=== PATIENT | male | born 1995 | race Caucasian/White ===

== ENCOUNTER 2022-11-11 12:52 | Outpatient (OUT) | payer OTHER, SELFPAY ==
--- NOTE | 2022-11-11 12:58 | US_ITS ---
[address] [address] Patient Name: MEREDITH NAPIER MRN: [id number] date: 1995 Sex: M Assigned Patient Location: [place] Current Patient Location: [place] Accession/Order Number: [id number] Exam Date: 11/11/2022 13:04 Report Date: 11/11/2022 16:24 At the request of: RADHIKA BARRAGAN Procedure: US scrotum doppler US scrotum doppler, 11/11/2022 1:04 PM EDT INDICATION:Left testicular pain x3 months COMPARISON: None. GRAYSCALE TECHNIQUE: Multi-planar real-time high-resolution ultrasound of the scrotum was performed. DOPPLER TECHNIQUE: Color and/or power Doppler combined with spectral Doppler analysis to evaluate blood flow to and from the testes was performed. FINDINGS: Right testicle: Normal size and echotexture 3.4 x 2.5 x 2.4 cm. Right epididymis: 0.5 x 0.4 x 0.4 simple epididymal cyst. Vascularity is within normal limits. Left testicle: Normal size and echotexture 3.3 x 2.3 x 1.8 cm. Left epididymis: Vascularity is within normal limits. Grade 1 left varicocele. Normal color Doppler with arterial/venous spectral tracing to both testicles. No hydrocele. IMPRESSION: 1. No suspicious testicular mass or testicular torsion. 2. Simple right epididymal cyst. 3. Grade 1 left varicocele. Electronically authenticated by: BALJIT RAMÍREZ Date: 11/11/2022 16:24
== END 2022-11-11 12:53 | disposition home or self-care (01) ==
LOC: US 12:53
PROVIDERS: PCP Nurse Practitioner Family; Visit Provider Family Medicine
DX: N50.812 Left testicular pain (principal)
CPT/HCPCS: 76870; 93976

== ENCOUNTER 2023-03-10 06:48 | Outpatient (OUT) | payer OTHER, SELFPAY ==
[2023-03-10 07:12] LABS: Basophils Absolute Auto 0.1 10^3/uL (0.0-0.1); Basophils Percent Auto 0.8 % (0.2-2.0); Eosinophils Absolute Auto 0.3 10^3/uL (0.0-0.7); Eosinophils Percent Auto 3.8 % (0.9-7.0); Hematocrit 43.5 % (42.0-54.0); Hemoglobin 14.5 g/dL (14.0-18.0); Immature Granulocytes Abs Auto 0.03 10^3/uL (0.00-0.03); Immature Granulocytes Pct Auto 0.3 % (0.0-0.5); Lymphocytes Absolute Auto 1.9 10^3/uL (1.2-3.8); Lymphocytes Percent Auto 20.6 % (20.5-60.0); Mean Corpuscular HGB Conc 33.3 g/dL (29.9-35.2); Mean Corpuscular Hemoglobin 30.2 pg (25.9-34.0); Mean Corpuscular Volume 90.6 fL (80.0-94.0); Mean Platelet Volume 13.2 fL (9.5-13.5); Monocytes Absolute Auto 0.8 10^3/uL (0.3-0.8); Monocytes Percent Auto 8.7 % (1.7-12.0); Neutrophils Absolute Auto 5.9 10^3/uL (1.4-6.5); Neutrophils Percent Auto 65.8 % (43.0-75.0); Platelet Count 135 10^3/uL (150-450); Red Cell Distribution Width 13.4 % (11.0-15.0)
[2023-03-10 07:48] LABS: Estimated Average Glucose 94 mg/dL; Glycohemoglobin A1C 4.9 % (4.5-6.2)
[2023-03-10 08:42] LABS: Alanine Aminotransferase 49 U/L (16-63); Albumin Level 3.7 g/dL (3.4-5.0); Alkaline Phosphatase 87 U/L (46-116); Anion Gap 12.4; Aspartate Amino Transferase 26 U/L (15-37); BUN Creatinine Ratio 13.7; Bilirubin Total 0.8 mg/dL (0.2-1.0); Calcium 9.3 mg/dL (8.5-10.1); Carbon Dioxide 26.5 mmol/L (21.0-32.0); Chloride 104 mmol/L (98-107); Chol HDL Ratio 2.6; Cholesterol 132 mg/dL (<=200); Estimated GFR (African America >60 (>=60); Estimated GFR (Non-African Ame >60 (>=60); Free T3 2.53 pg/mL (2.18-3.98); Globulin 3.8 g/dL; Glucose 79 mg/dL (74-106); HDL Cholesterol 50 mg/dL (40-60); LDL Cholesterol Calculated 67.6 mg/dL; Potassium 3.9 mmol/L (3.5-5.1); Sodium 139 mmol/L (136-145); Total Protein 7.5 g/dL (6.4-8.2); Triglycerides 72 mg/dL (<=150); VLDL CHOLESTEROL 14.4 mg/dL
[2023-03-11 12:07] LABS: Insulin 10.5 uIU/mL (2.6-24.9)
== END 2023-03-10 06:49 | disposition home or self-care (01) ==
LOC: LAB 06:49
PROVIDERS: PCP Family Medicine; Visit Provider Family Medicine
DX: Z00.00 Encounter for general adult medical examination without abnormal findings (principal)
CPT/HCPCS: 36415; 80053; 80061; 83036; 83525; 84436; 84443; 84481; 85025

== ENCOUNTER 2023-10-14 08:19 | Emergency (ER) | payer OTHER, SELFPAY ==
--- OUTSIDE RECORDS SUMMARY | 2023-10-14 08:23 | XMS_ITS | CCD ---
Author Organization [facility] Care Team Providers Care [employer] Software Developer Name Role Phone Radhika Barragan Primary Care Physician ODIN HOOKER Primary Care Unavailable KATHERINE LOMBARDI Consulting Unavailable KATHERINE LOMBARDI Admitting Unavailable KATHERINE LOMBARDI Attending Unavailable PHILIP BUSBY Consulting Unavailable DR RADHIKA BARRAGAN Admitting Unavailable DR RADHIKA BARRAGAN Attending Unavailable ODIN HOOKER Primary Care Unavailable DR RADHIKA BARRAGAN Consulting Unavailable MD Radhika Barragan Primary Care Provider [phone] DO Bryce Zhang Attending Provider [phone] Bryce Zhang Unavailable MD Radhika Barragan Primary Care Provider DO Bryce Zhang Attending Provider [phone] Radhika Barragan Primary Care Unavailable Bryce Zhang Admitting Unavailable Bryce Zhang Attending Unavailable Radhika Barragan Primary Care Unavailable Bryce Zhang Admitting Unavailable Bryce Zhang Attending Unavailable Bryce Zhang Admitting Unavailable Bryce Zhang Attending Unavailable Radhika Barragan Primary Care Unavailable Medications Current Medications Medication Drug Class(es) Dates Sig (Normalized) Sig (Original) Calcium (3 sources) Phosphate Binder, Calcium Calcium Active Fish Oils (3 sources) Fish Oil Active Ibuprofen (6 sources) Nonsteroidal Anti-inflammatory Drug Ibuprofen Active Multivitamin preparation (3 sources) Multivitamin Active vardenafil 20 mg oral tablet (1 source) Phosphodiesterase 5 Inhibitor Start: 08-03-2021 take 1 tablet by mouth once daily as needed vardenafil 20 mg Tab 20 mg = 1 tab(s), Oral, Daily, PRN for erectile dysfunction, Refills(s) 0 Start Date: 08/03/21 Status: Ordered Problems Active Problems Problem Classification Problem Date Documented Da te Episodic/Chronic E Codes: Natural/environment (1 source) Other and unspecified overexertion or strenuous movements or postures, initial encounter; Translations: [OTH AND UNS OVREXRT/STRN MVMT/POS INT] Onset: 05-02-2022 Episodic Fracture of lower limb (7 sources) Nondisplaced fracture of lateral malleolus of left fibula, initial encounter for closed fracture; Translations: [Other fracture of upper and lower end of left fibula, initial encounter for closed fracture] Onset: 05-02-2022 Episodic Other male genital disorders (5 sources) Male erectile dysfunction, unspecified; Translations: [Erectile dysfunction] Onset: 07-05-2021 Chronic Other non-traumatic joint disorders (3 sources) Pain in left ankle and joints of left foot; Translations: [PAIN IN LEFT ANKLE] Onset: 04-29-2022 Episodic Unclassified (1 source) Other fracture of upper and lower end of left fibula, initial encounter for closed fracture; Translations: [Other fracture of upper and lower end of left fibula, initial encounter for closed fracture] Onset: 05-17-2022 Past or Other Problems Problem Classification Problem Date Documented Da te Episodic/Chronic Deficiency and other anemia (1 source) Anemia, unspecified; Translations: [ANEMIA UNSPECIFIED] Onset: 07-07-2021 Episodic Diabetes mellitus without complication (1 source) Other abnormal glucose; Translations: [OTHER ABNORMAL GLUCOSE] Onset: 07-07-2021 Episodic Results Test Name Value Interpretation Reference Range Facility XR ankle LT min 3V*on 2022 XR ankle LT min 3V* [facility] Editorially Other XR ankle LT min 3V* [facility] Editorially Other XR ankle LT min 3V* [address] [place] [address] Editorially Other XR ankle LT min 3V* [place] [address] [facility] Editorially Other XR ankle LT min 3V* XRay Report [facility] Editorially Other XR ankle LT min 3V* Signed [facility] Editorially Other XR ankle LT min 3V* Patient: Pilo Johnson MR#: [id number] [facility] Other XR ankle LT min 3V* 2 [facility] Other XR ankle LT min 3V* : 1995 Acct:[id number] [facility] Other XR ankle LT min 3V* Age/Sex: 27 / M ADM Date: 08/02/22 [facility] Other XR ankle LT min 3V* Loc: [facility] Room: Type: [facility] Other XR ankle LT min 3V* Attending Dr: Bryce Zhang DO [facility] Other XR ankle LT min 3V* Copies to: Bryce Zhang DO [facility] Other XR ankle LT min 3V* Ordering Provider: Bryce Zhang DO [facility] Other XR ankle LT min 3V* Date of Service: 08/02/22 [facility] Other XR ankle LT min 3V* XR/XR ankle LT min 3V*: Closed fracture of distal end of left fibula, [facility] Other XR ankle LT min 3V* unspecified fr N [facility] [employer] Other XR ankle LT min 3V* LEFT ANKLE - 3 views [facility] Other XR ankle LT min 3V* CLINICAL HISTORY: Follow-up left distal fibular fracture [facility] Other XR ankle LT min 3V* COMPARISON: Left ankle 06/21/2022 [facility] Other XR ankle LT min 3V* FINDINGS: [facility] Other XR ankle LT min 3V* Soft tissue swelling is still present. Fracture is grossly unchanged alignment and healing. Ankle [facility] Other XR ankle LT min 3V* mortise appears intact. [facility] Other XR ankle LT min 3V* XR/XR ankle LT min 3V* [facility] Other XR ankle LT min 3V* IMPRESSION: [email or web address] Other XR ankle LT min 3V* DISTAL FIBULAR FRACTURE, GROSSLY UNCHANGED. [facility] Other XR ankle LT min 3V* Impression dictated by: Kalia Luke Jr., D.O.08/02/2022 10:50 AM [facility] Other XR ankle LT min 3V* Dictation Location: [place] [address] [facility] Other XR ankle LT min 3V* Transcribed By: PWS 08/02/22 1050 [facility] Other XR ankle LT min 3V* Dictated By: Kalia Luke Jr, DO 08/02/22 1049 [facility] Other XR ankle LT min 3V* Signed By: [facility] Other XR ankle LT min 3V* 08/02/22 1050 No [email or web address] Other XR ankle LT min 3V* [facility] Main [place] [address] [place] [address] XRay Report Signed Patient: Pilo Johnson MR#: [id number] 2 : 1995 Acct:[id number] Age/Sex: 27 / M ADM Date: 08/02/22 Loc: [facility] Room: Type: [facility] CLI Attending Dr: Bryce Zhang DO Copies to: Bryce Zhang DO Ordering Provider: Bryce Zhang DO Date of Service: 08/02/22 XR/XR ankle LT min 3V*: Closed fracture of distal end of left fibula, unspecified fr LEFT ANKLE - 3 views CLINICAL HISTORY: Follow-up left distal fibular fracture COMPARISON: Left ankle 06/21/2022 FINDINGS: Soft tissue swelling is still present. Fracture is grossly unchanged alignment and healing. Ankle mortise appears intact. XR/XR ankle LT min 3V* IMPRESSION: DISTAL FIBULAR FRACTURE, GROSSLY UNCHANGED. Impression dictated by: Kalia Luke Jr., D.O.08/02/2022 10:50 AM [employer]ictation Location: [facility]--12 Transcribed By: [facility] 08/02/22 1050 Dictated By: Kalia Luke Jr, DO 08/02/22 1049 Signed By: 08/02/22 1050 Normal [facility] XR ankle LT min 3V*on 2022 XR ankle LT min 3V* [facility] Editorially Other XR ankle LT min 3V* [facility] Editorially Other XR ankle LT min 3V* [address] [place] [address] [employer] Other XR ankle LT min 3V* [place] [address] [facility] Other XR ankle LT min 3V* XRay Report Nort [employer] Other XR ankle LT min 3V* Signed [facility] Other XR ankle LT min 3V* Patient: Pilo Johnson MR#: [id number] [facility] Other XR ankle LT min 3V* 2 [facility] Other XR ankle LT min 3V* : 1995 Acct:[id number] [facility] Other XR ankle LT min 3V* Age/Sex: 27 / M ADM Date: 06/21/22 [facility] Other XR ankle LT min 3V* Loc: [facility] Room: Type: [facility] Other XR ankle LT min 3V* Attending Dr: Bryce Zhang DO [facility] Other XR ankle LT min 3V* Copies to: Bryce Zhang DO [facility] Other XR ankle LT min 3V* Ordering Provider: Bryce Zhang DO [facility] Other XR ankle LT min 3V* Date of Service: 06/21/22 [facility] Other XR ankle LT min 3V* XR/XR ankle LT min 3V*: Closed fracture of distal end of left fibula, [facility] Other XR ankle LT min 3V* unspecified fr N [facility] Other XR ankle LT min 3V* LEFT ANKLE - 3 views [facility] Other XR ankle LT min 3V* CLINICAL HISTORY: Follow-up left distal fibular fracture. [facility] Other XR ankle LT min 3V* COMPARISON: Left ankle 05/17/2022 [facility] Other XR ankle LT min 3V* FINDINGS: [facility] Other XR ankle LT min 3V* Soft tissue swelling is noted. Interval callus formation involving the distal fibular fracture [facility] Other XR ankle LT min 3V* suggestive of healing response. No change in alignment. Ankle mortise appears intact. [facility] Other XR ankle LT min 3V* XR/XR ankle LT min 3V* [facility] Other XR ankle LT min 3V* IMPRESSION: [email or web address] Other XR ankle LT min 3V* HEALING DISTAL FIBULAR FRACTURE. [facility] Other XR ankle LT min 3V* Impression dictated by: Yenni Pena Jr.OXiomara06/21/2022 10:09 AM [facility] Other XR ankle LT min 3V* Dictation Location: [place] [address] [facility] Other XR ankle LT min 3V* Transcribed By: BEN 06/21/22 1009 [facility] Editorially Other XR ankle LT min 3V* Dictated By: Kalia Luke Jr, DO 06/21/22 1009 [facility] Editorially Other XR ankle LT min 3V* Signed By: Valatie [employer] Other XR ankle LT min 3V* 06/21/22 1009 [facility] Other [facility] min 3V* [facility] Main [address] [address] XRay Report Signed Patient: Pilo Johnson MR#: [id number] 2 : 1995 Acct:[id number] Age/Sex: 27 / M ADM Date: 06/21/22 Loc: [facility] Room: Type: [facility] Attending Dr: Bryce Zhang DO Copies to: Bryce Zhang DO Ordering Provider: Bryce Zhang DO Date of Service: 06/21/22 XR/XR ankle LT min 3V*: Closed fracture of distal end of left fibula, unspecified fr LEFT ANKLE - 3 views CLINICAL HISTORY: Follow-up left distal fibular fracture. COMPARISON: Left ankle 05/17/2022 FINDINGS: Soft tissue swelling is noted. Interval callus formation involving the distal fibular fracture suggestive of healing response. No change in alignment. Ankle mortise appears intact. XR/XR ankle LT min 3V* IMPRESSION: HEALING DISTAL FIBULAR FRACTURE. Impression dictated by: Kalia Luke Jr., D.OXiomara06/21/2022 10:09 AM Dictation Location: [place] [address] Transcribed By: BEN 06/21/22 1009 Dictated By: Kalia Luke Jr, DO 06/21/22 1009 Signed By: 06/21/22 1009 Normal [facility] XR ankle LT min 3V*on 2022 XR ankle LT min 3V* [facility] Main [address] [address] XRay Report Signed Patient: Pilo Johnson MR#: [id number] 2 : 1995 Acct:[id number] Age/Sex: 27 / M ADM Date: 05/17/22 Loc: [facility] Room: Type: [facility] Attending Dr: Bryce Zhang DO Copies to: Bryce Zhang DO Ordering Provider: Bryce Zhang DO Date of Service: 05/17/22 XR/XR ankle LT min 3V*: Closed fracture of distal end of left fibula, unspecified fr LEFT ANKLE - 3 views CLINICAL HISTORY: Follow-up post fracture distal end left fibula. COMPARISON: Left ankle 04/29/2022 FINDINGS: Soft tissue swelling is noted. Fracture involving the distal fibula grossly unchanged in alignment with fracture line less conspicuous suggestive of healing response. Ankle mortise appears intact. XR/XR ankle LT min 3V* IMPRESSION: HEALING DISTAL FIBULAR FRACTURE. Impression dictated by: Kalia Luke Jr., D.O.05/17/2022 2:58 PM Dictation Location: [place] [address] Transcribed By: [facility] 05/17/22 1458 Dictated By: Kalia Luke Jr, DO 05/17/22 1457 Signed By: 05/17/22 1458 Normal [facility] XR ankle LT min 3V* [facility] Editorially Other XR ankle LT min 3V* [facility] Main [facility] Editorially Other XR ankle LT min 3V* [address] [place] [address] Editorially Other XR ankle LT min 3V* [place] [address] [facility] Editorially Other XR ankle LT min 3V* XRay Report Nort [employer] Other XR ankle LT min 3V* Signed [facility] Other XR ankle LT min 3V* Patient: Pilo Johnson MR#: [id number] [facility] Editorially Other XR ankle LT min 3V* 2 [facility] Other XR ankle LT min 3V* : 1995 Acct:[id number] [facility] Other XR ankle LT min 3V* Age/Sex: 27 / M ADM Date: 05/17/22 [facility] Other XR ankle LT min 3V* Loc: [facility] Room: Type: REG I [facility] Other XR ankle LT min 3V* Attending Dr: Bryce Zhang DO [facility] Other XR ankle LT min 3V* Copies to: Bryce Zhang DO [facility] Other XR ankle LT min 3V* Ordering Provider: Bryce Zhang DO [facility] Other XR ankle LT min 3V* Date of Service: 05/17/22 [facility] Other XR ankle LT min 3V* XR/XR ankle LT min 3V*: Closed fracture of distal end of left fibula, [facility] Other XR ankle LT min 3V* unspecified fr N [facility] Other XR ankle LT min 3V* LEFT ANKLE - 3 views [facility] Other XR ankle LT min 3V* CLINICAL HISTORY: Follow-up post fracture distal end left fibula. [facility] Other XR ankle LT min 3V* COMPARISON: Left ankle 04/29/2022 [facility] Other XR ankle LT min 3V* FINDINGS: [facility] Other XR ankle LT min 3V* Soft tissue swelling is noted. Fracture involving the distal fibula grossly unchanged in alignment [facility] Other XR ankle LT min 3V* with fracture line less conspicuous suggestive of healing response. Ankle mortise appears intact. [facility] Other XR ankle LT min 3V* XR/XR ankle LT min 3V* [facility] Other XR ankle LT min 3V* IMPRESSION: [email or web address] Other XR ankle LT min 3V* HEALING DISTAL FIBULAR FRACTURE. [facility] Other XR ankle LT min 3V* Impression dictated by: Kalia Luke Jr., DXiomaraOXiomara05/17/2022 2:58 PM [facility] Other XR ankle LT min 3V* Dictation Location: [place] [address] [facility] Other XR ankle LT min 3V* Transcribed By: PWS 05/17/22 [facility] Other XR ankle LT min 3V* Dictated By: Kalia Luke Jr DO 05/17/22 145 [facility] Other XR ankle LT min 3V* Signed By: [facility] Other XR ankle LT min 3V* 05/17/22 1458 No rt [employer] Other XR TIB_FIB LT 2Von 2 XR TIB_FIB LT 2V EXAM: XR TIB_FIB LT 2V, XR ANKLE LT MIN 3 V INDICATION: Pain. Twisted left ankle yesterday. COMPARISON: None. TECHNIQUE: Left tibia and fibula, 2 views. Left ankle, 3 views. FINDINGS: Nondisplaced oblique fracture of the medial malleolus. Intact ankle mortise. No other fracture identified. Grossly intact left knee joint. Soft tissue swelling about the ankle. Posterior calcaneal enthesophyte noted. IMPRESSION: Nondisplaced lateral malleolar fracture. Electronically authenticated by: PHILIP BUSBY Date: 2022-04-29 11:37 Normal [facility] Ambulatory Visit Summaryon 0 08-03-2021 Ambulatory Visit Summary QUYEN PILO :1995 Visit Date:08/03/2021 Ambulatory Visit Instructions Your Diagnosis Erectile dysfunction Tests Performed Urnls Dip Stick Auto w/o Microscopy POC 72375 Your Care Team Attending Physician - MORENO MARTINEZ PA-C Primary Care Physician - Radhika Barragan MD This Is Your Medications List vardenafil (vardenafil 20 mg Tab) Procedures Performed Gastric bypass (02/11/2019), Heart (2008). Discharge Vitals Heart Rate (Peripheral) 69 Respiratory Rate 16 Blood Pressure 132/75 Height 192 cm Height 192.0 cm Weight 171.3 kg Weight 171.3 kg BMI 46.47 Medications What How Much When Instructions Unchanged vardenafil (vardenafil 20 mg Tab) 1 Tablets By Mouth Every day as needed for for erectile dysfunction Test Results Urnls Dip Stick Auto w/o Microscopy POC 90957 (08/03/2021) Bilirubin Urine Dipstick - Negative Blood Urine Dipstick - Negative Glucose Urine Dipstick - Negative Ketones Urine Dipstick - Negative Leukocytes Urine Dipstick - Negative Nitrite Urine Dipstick - Negative Protein Urine Dipstick - Negative Specific [place] Urine Dipstick - 1.020 Urine Appearance Urine Dipstick - Clear Urine Color Urine Dipstick - Yellow Urobilinogen Urine Dipstick - 4 EU/dl pH Urine Dipstick - 6.5 Allergies No active allergies Normal [facility] Lab Reportson 08-03-2021 Lab Reports [id number] [id number]:127 Normal [facility] Patient Educationon 08-04-19 22 Patient Education Urology Erectile Dysfunction Erectile dysfunction (ED) is the inability to get or keep an erection in order to have sexual intercourse. Erectile dysfunction may include: ? Inability to get an erection. ? Lack of enough hardness of the erection to allow penetration. ? Loss of the erection before sex is finished. What are the causes? This condition may be caused by: ? Certain medicines, such as: ? Pain relievers. ? Antihistamines. ? Antidepressants. ? Blood pressure medicines. ? Water pills (diuretics). ? Ulcer medicines. ? Muscle relaxants. ? Drugs. ? Excessive drinking. ? Psychological causes, such as: ? Anxiety. ? Depression. ? Sadness. ? Exhaustion. ? Performance fear. ? Stress. ? Physical causes, such as: ? Artery problems. This may include diabetes, smoking, liver disease, or atherosclerosis. ? High blood pressure. ? Hormonal problems, such as low testosterone. ? Obesity. ? Nerve problems. This may include back or pelvic injuries, diabetes mellitus, multiple sclerosis, or Parkinson disease. What are the signs or symptoms? Symptoms of this condition include: ? Inability to get an erection. ? Lack of enough hardness of the erection to allow penetration. ? Loss of the erection before sex is finished. ? Normal erections at some times, but with frequent unsatisfactory episodes. ? Low sexual satisfaction in either partner due to erection problems. ? A curved penis occurring with erection. The curve may cause pain or the penis may be too curved to allow for intercourse. ? Never having nighttime erections. How is this diagnosed? This condition is often diagnosed by: ? Performing a physical exam to find other diseases or specific problems with the penis. ? Asking you detailed questions about the problem. ? Performing blood tests to check for diabetes mellitus or to measure hormone levels. ? Performing other tests to check for underlying health conditions. ? Performing an ultrasound exam to check for scarring. ? Performing a test to check blood flow to the penis. ? Doing a sleep study at home to measure nighttime erections. How is this treated? This condition may be treated by: ? Medicine taken by mouth to help you achieve an erection (oral medicine). ? Hormone replacement therapy to replace low testosterone levels. ? Medicine that is injected into the penis. Your health care provider may instruct you how to give yourself these injections at home. ? Vacuum pump. This is a pump with a ring on it. The pump and ring are placed on the penis and used to create pressure that helps the penis become erect. ? Penile implant surgery. In this procedure, you may receive: ? An inflatable implant. This consists of cylinders, a pump, and a reservoir. The cylinders can be inflated with a fluid that helps to create an erection, and they can be deflated after intercourse. ? A semi-rigid implant. This consists of two silicone rubber rods. The rods provide some rigidity. They are also flexible, so the penis can both curve downward in its normal position and become straight for sexual intercourse. ? Blood vessel surgery, to improve blood flow to the penis. During this procedure, a blood vessel from a different part of the body is placed into the penis to allow blood to flow around (bypass) damaged or blocked blood vessels. ? Lifestyle changes, such as exercising more, losing weight, and quitting smoking. Follow these instructions at home: Medicines ? Take [id number]-fuxpfun and prescription medicines only as told by your health care provider. Do not increase the dosage without first discussing it with your health care provider. ? If you are using self-injections, perform injections as directed by your health care provider. Make sure to avoid any veins that are on the surface of the penis. After giving an injection, apply pressure to the injection site for 5 minutes. General instructions ? Exercise regularly, as directed by your health care provider. Work with your health care provider to lose weight, if needed. ? Do not use any products that contain nicotine or tobacco, such as cigarettes and e-cigarettes. If you need help quitting, ask your health care provider. ? Before using a vacuum pump, read the instructions that come with the pump and discuss any questions with your health care provider. ? Keep all follow-up visits as told by your health care provider. This is important. Contact a health care provider if: ? You feel nauseous. ? You vomit. Get help right away if: ? You are taking oral or injectable medicines and you have an erection that lasts longer than 4 hours. If your health care provider is unavailable, go to the nearest emergency room for evaluation. An erection that lasts much longer than 4 hours can result in permanent damage to your penis. ? You have severe pain in your groin or abdomen. ? You develop redness or severe swelling of your (more content not included)... Normal [facility] TESTOSTERONE, FREE,DIRECT, T [place] 07-07-2021 Free Testosterone(Direct) 10.5 pg/mL Normal 9.3-26.5 [facility] Comment on above: Result Comment: Perf ormed at: BN Performed By: #### T ESTFRD #### [facility] [address] [place] [address] [address] Leonor Galicia Testosterone [Mass/Vol] 630 ng/dL Normal 264-916 [facility] Comment on above: Result Comment: Adul t male reference interval is based on a population of healthy nonobese males (BMI <30) between 19 and 39 years old. Jamel et.al. JCEM 2017,102;8063-6589. PMID: [id number]. Performed at: CB Performed By: #### T ESTFRD #### [facility] [address] [place] [address] Dr. Leonor Galicia INSULINon 07-06-2021 Insulin 16.1 uIU/mL Normal 2.6-24.9 [facility] Comment on above: Performed By: #### I NSULIN #### [facility] [address] [place] [address] Dr. Leonor Galicia CBC AUTO DIFFon 07-05-2021 BASO # 0.1 103/ul Normal 0.0-0.1 [facility] Comment on above: Performed By: #### C BC #### [facility] [address] [place] [address] Dr. Leonor Galicia Basophils/100 WBC (Bld) 0.7 % Normal 0.2-2.0 [facility] Comment on above: Performed By: #### C BC #### [facility] [address] [place] [address] Dr. Leonor Galicia EO # 0.4 103/ul Normal 0.0-0.7 [facility] Comment on above: Performed By: #### C BC #### [facility] [address] [place] [address] Dr. Leonor Galicia Eosinophils/100 WBC (Bld) 6.3 % Normal 0.9-7.0 [facility] Comment on above: Performed By: #### C BC #### [facility] [address] [place] [address] Dr. Leonor Galicia Erythrocyte distribution width (RBC) [Ratio] 13.8 % Normal 11.0-15.0 [facility] Comment on above: Performed By: #### C BC #### [facility] [address] [place] [address] Dr. Leonor Galicia Hematocrit (Bld) [Volume fraction] 44.9 % Normal 42.0-54.0 [facility] Comment on above: Performed By: #### C BC #### [facility] [address] [place] [address] Dr. Leonor Galicia Hemoglobin (Bld) [Mass/Vol] 15.0 g/dL Normal 14.0-18.0 [facility] Comment on above: Performed By: #### C BC #### [facility] [address] [place] [address] Dr. Leonor Galicia IG # 0.02 10e3/ul Normal 0.00-0.03 [facility] Comment on above: Performed By: #### C BC #### [facility] [address] [place] [address] Dr. Leonor Galicia IG % 0.3 % Normal 0.0-0.5 [facility] Comment on above: Performed By: #### C BC #### [facility] [address] [place] [address] Dr. Leonor Galicia LYMPH # 2.2 103/ul Normal 1.2-3.8 [facility] Comment on above: Performed By: #### C BC #### [facility] [address] [place] [address] Dr. Leonor Galicia Lymphocytes/100 WBC (Bld) 31.9 % Normal 20.5-60.0 [facility] Comment on above: Performed By: #### C BC #### [facility] [address] [place] [address] Dr. Leonor Galicia MANUAL DIFF REQ NO Normal [facility] Comment on above: Performed By: #### C BC #### [facility] [address] [place] [address] Dr. Leonor Galicia MCH (RBC) [Entitic mass] 30.8 pg Normal 25.9-34.0 [facility] Comment on above: Performed By: #### C BC #### [facility] [address] [place] [address] Dr. Leonor Galicia MCHC (RBC) [Mass/Vol] 33.4 g/dL Normal 29.9-35.2 [facility] Comment on above: Performed By: #### C BC #### [facility] [address] [place] [address] Dr. Leonor Galicia MCV (RBC) [Entitic vol] 92.2 fL Normal 80.0-94.0 [facility] Comment on above: Performed By: #### C BC #### [facility] [address] [address] [address] Leonor Galicia MONO # 0.7 103/ul Normal 0.3-0.8 [facility] Comment on above: Performed By: #### C BC #### [facility] [address] [address] [address] Leonor Galicia Monocytes/100 WBC (Bld) 9.5 % Normal 1.7-12.0 [facility] Comment on above: Performed By: #### C BC #### [facility] [address] [place] [address] Dr. Leonor Galicia NEUT # 3.6 103/ul Normal 1.4-6.5 [facility] Comment on above: Performed By: #### C BC #### [facility] [address] [place] [address] Dr. Leonor Galicia Neutrophils/100 WBC (Bld) 51.3 % Normal 43.0-75.0 [facility] Comment on above: Performed By: #### C BC #### [facility] [address] [place] [address] Dr. Leonor Galicia Platelet mean volume (Bld) [Entitic vol] 12.9 fL Normal 9.5-13.5 [facility] Comment on above: Performed By: #### C BC #### [facility] [address] [place] [address] Dr. Leonor Galicia PLT 148 103/ul Critically low 150-450 [facility] Comment on above: Performed By: #### C BC #### [facility] [address] [place] [address] Dr. Leonor Galicia RBC 4.87 106/ul Normal 4.70-6.10 [facility] Comment on above: Performed By: #### C BC #### [facility] [address] [place] [address] Dr. Leonor Galicia WBC 6.9 103/ul Normal 4.0-11.0 [facility] Comment on above: Performed By: #### C BC #### [facility] [address] [place] [address] Dr. Leonor Galicia FREE THYROXINE INDEX T7on FTI 3.04 Normal [facility] Comment on above: Performed By: #### L IPID, CMP, TSH, T7 #### [facility] [address] [place] [address] Dr. Leonor Galicia T3U 38.0 % Normal 23.5-40.5 [facility] Comment on above: Performed By: #### L IPID, CMP, TSH, T7 #### [facility] [address] [place] [address] Dr. Leonor Galicia T4 [Mass/Vol] 8.00 ug/dL Normal 5.53-11.00 [facility] Comment on above: Performed By: #### L IPID, CMP, TSH, T7 #### [facility] [address] [place] [address] Dr. Leonor Galicia GLYCOHEMOGLOBIN A1Con 2021 ADA RECOMMENDATION ADA THERAPEUTIC TARGET 6.0 - 7.0 ACTION SUGGESTED > 7.0 Normal [facility] Comment on above: Performed By: #### A 1C #### [facility] [address] [place] [address] Dr. Leonor Galicia Glucose [Mass/Vol] 97 mg/dL Normal [facility] Comment on above: Performed By: #### A 1C #### [facility] [address] [place] [address] Dr. Leonor Galicia HbA1c (Bld) [Mass fraction] 5.0 % Normal <=6.0 [facility] Comment on above: Performed By: #### A 1C #### [facility] [address] [place] [address] Dr. Leonor Galicia IRONon 07-05-2021 Iron [Mass/Vol] 96.0 ug/dL Normal 49.0-181.0 [facility] Comment on above: Performed By: #### L IPID, CMP, TSH, T7 #### [facility] [address] [place] [address] Dr. Leonor Galicia LIPID PROFILEon 07-05-2021 CHOL-HDL RATIO NORM SEE BELOW Normal [facility] Comment on above: Result Comment: 3.3 - 4.4 LOW RISK 4.4 - 7.1 AVERAGE RISK 7.1 - 11.0 MODERATE RISK >11.0 HIGH RISK Performed By: #### L IPID, CMP, TSH, T7 #### [facility] [address] [address] [address] Leonor Galicia Cholesterol [Mass/Vol] 134 mg/dL Normal <=200 [facility] Comment on above: Performed By: #### L IPID, CMP, TSH, T7 #### [facility] [address] [address] [address] Leonor Galicia Cholesterol in HDL [Mass/Vol] 50 mg/dL Normal [facility] Comment on above: Performed By: #### L IPID, CMP, TSH, T7 #### [facility] [address] [address] [address] Leonor Galicia Cholesterol in LDL [Mass/Vol] 67.6 mg/dL Normal [facility] Comment on above: Performed By: #### L IPID, CMP, TSH, T7 #### [facility] [address] [address] [address] Leonor Galicia Cholesterol.total/Ch olesterol in HDL [Mass ratio] 2.7 {ratio} Normal [facility] Comment on above: Performed By: #### L IPID, CMP, TSH, T7 #### [facility] [address] [address] [address] Leonor Galicia HDL NORMAL > or = 60 mg/dl - LOW CARDIOVASCULAR RISK <40 mg/dl - HIGH CARDIOVASCULAR RISK Normal [facility] Comment on above: Performed By: #### L IPID, CMP, TSH, T7 #### [facility] [address] [address] [address] Leonor Galicia LDL CALC NORMAL SEE BELOW Normal [facility] Comment on above: Result Comment: <100 mg/dl OPTIMAL 100 - 129 mg/dl NEAR OR ABOVE OPTIMAL 130 - 159 mg/dl BORDERLINE HIGH 160 - 189 mg/dl HIGH >190 mg/dl VERY HIGH Performed By: #### L IPID, CMP, TSH, T7 #### [facility] [address] [address] [address] Leonor Galicia Triglyceride [Mass/Vol] 82 mg/dL Normal <=150 [facility] Comment on above: Performed By: #### L IPID, CMP, TSH, T7 #### [facility] [address] [address] [address] Leonor Galicia VLDL CALC 16.4 mg/dL Normal [facility] Comment on above: Performed By: #### L IPID, CMP, TSH, T7 #### [facility] [address] [address] [address] Leonor Galicia PROF 14(COMP METB)on 022 Albumin [Mass/Vol] 3.5 g/dL Normal 3.5-5.0 [facility] Comment on above: Performed By: #### L IPID, CMP, TSH, T7 #### [facility] [address] [address] [address] Leonor Galicia Albumin/Globulin [Mass ratio] 0.9 {ratio} Normal [facility] Comment on above: Performed By: #### L IPID, CMP, TSH, T7 #### [facility] [address] [address] [address] Leonor Galicia ALP [Catalytic activity/Vol] 89 U/L Normal 38-126 [facility] Comment on above: Performed By: #### L IPID, CMP, TSH, T7 #### [facility] [address] [address] [address] Leonor Galicia ALT [Catalytic activity/Vol] 28 U/L Normal 21-72 [facility] Comment on above: Performed By: #### L IPID, CMP, TSH, T7 #### [facility] [address] [address] [address] Leonor Galicia Anion gap [Moles/Vol] 7.3 mmol/L Normal [facility] Comment on above: Performed By: #### L IPID, CMP, TSH, T7 #### [facility] [address] [place] [address] Dr. Leonor Galicia AST [Catalytic activity/Vol] 18 U/L Normal 17-59 [facility] Comment on above: Performed By: #### L IPID, CMP, TSH, T7 #### [facility] [address] [address] [address] Leonor Galicia Bilirubin [Mass/Vol] 1.1 mg/dL Normal 0.2-1.3 [facility] Comment on above: Performed By: #### L IPID, CMP, TSH, T7 #### [facility] [address] [place] [address] Dr. Leonor Galicia Calcium [Mass/Vol] 9.2 mg/dL Normal 8.4-10.2 [facility] Comment on above: Performed By: #### L IPID, CMP, TSH, T7 #### [facility] [address] [place] [address] Dr. Leonor Galicia Chloride [Moles/Vol] 107 mmol/L Normal 98-107 [facility] Comment on above: Performed By: #### L IPID, CMP, TSH, T7 #### [facility] [address] [place] [address] Dr. Leonor Galicia CO2 [Moles/Vol] 28.9 mmol/L Normal 22.0-30.0 [facility] Comment on above: Performed By: #### L IPID, CMP, TSH, T7 #### [facility] [address] [place] [address] Dr. Leonor Galicia Creatinine [Mass/Vol] 0.74 mg/dL Normal 0.66-1.25 [facility] Comment on above: Performed By: #### L IPID, CMP, TSH, T7 #### [facility] [address] [address] [address] Leonor Galicia EGFR-AF SURINAMESE >156 Normal >=60 [facility] Comment on above: Performed By: #### L IPID, CMP, TSH, T7 #### [facility] [address] [place] [address] Dr. Leonor Galicia EGFR-NON AF SURINAMESE >129 Normal >=60 [facility] Comment on above: Performed By: #### L IPID, CMP, TSH, T7 #### [facility] [address] [address] [address] Leonor Galicia Globulin (S) [Mass/Vol] 3.7 g/dL Normal [facility] Comment on above: Performed By: #### L IPID, CMP, TSH, T7 #### [facility] [address] [address] [address] Leonor Galicia Glucose [Mass/Vol] 83 mg/dL Normal 74-106 [facility] Comment on above: Performed By: #### L IPID, CMP, TSH, T7 #### [facility] [address] [address] [address] Leonor Galicia Potassium [Moles/Vol] 4.2 mmol/L Normal 3.4-5.0 [facility] Comment on above: Performed By: #### L IPID, CMP, TSH, T7 #### [facility] [address] [address] [address] Leonor Galicia Protein [Mass/Vol] 7.2 g/dL Normal 6.1-8.2 [facility] Comment on above: Performed By: #### L IPID, CMP, TSH, T7 #### [facility] [address] [address] [address] Leonor Galicia Sodium [Moles/Vol] 139 mmol/L Normal 137-145 [facility] Comment on above: Performed By: #### L IPID, CMP, TSH, T7 #### [facility] [address] [address] [address] Leonor Galicia Urea nitrogen [Mass/Vol] 12.0 mg/dL Normal 9.0-20.0 [facility] Comment on above: Performed By: #### L IPID, CMP, TSH, T7 #### [facility] [address] [place] [address] Dr. Leonor Galicia Urea nitrogen/Creatinine [Mass ratio] 16.2 mg/mg Normal [facility] Comment on above: Performed By: #### L IPID, CMP, TSH, T7 #### [facility] [address] [address] [address] Leonor Galicia TSHon 07-05-2021 TSH 1.870 uIU/mL Normal 0.470-4.680 [facility] Comment on above: Performed By: #### L IPID, CMP, TSH, T7 #### [facility] [address] [place], [place] [address] Dr. Leonor Galicia TSH RANGE SEE BELOW Normal [facility] Comment on above: Result Comment: <0.3 4 UIU/ml HYPERTHYROID 0.34-5.60 UIU/ml EUTHYROID >5.60 UIU/ml HYPOTHYROID Performed By: #### L IPID, CMP, TSH, T7 #### [facility] [address] [address] [address] Leonor Galicia Vital Signs Date Time Vital Sign Value Performing Clinician Facility 06-21-2022 09:15-0500 Body height 193.04 cm Bryce Zhang Other [facility] Other 06-21-2022 09:15-0500 Body mass index (BMI) [Ratio] 46.25 kg/m2 Bryce Zhang Other [facility] Other 06-21-2022 09:15-0500 Body weight 172.37 kg Bryce Zhang Other [facility] Other 05-03-2022 09:00-0500 Body height 193.04 cm Bryce Zhang Other [facility] Other 05-03-2022 09:00-0500 Body mass index (BMI) [Ratio] 42.6 kg/m2 Bryce Zhang Other [facility] Other 05-03-2022 09:00-0500 Body weight 158.76 kg Bryce Zhang Other [facility] Other 08-03-2021 09:56-0400 Blood Pressure Location MORENO MARTINEZ [facility] [place] 08-03-2021 09:56-0400 Diastolic blood pressure 75 mm[Hg] MORENO MARTINEZ [facility] [place] 08-03-2021 09:56-0400 Heart rate 69 /min MORENO MARTINEZ [facility] [place] 08-03-2021 09:56-0400 Respiratory rate 16 /min MORENO MARTINEZ [facility] [place] 08-03-2021 09:56-0400 Systolic blood pressure 132 mm[Hg] MORENO MARTINEZ [facility] [place] Encounters Encounter Date Encounter Type Care Provider Facility Start: 01-12-2023 End: 01-12-2023 ambulatory Bryce Zhang Other [facility] Other Start: 01-12-2023 Office outpatient vi sit 15 minutes Bryce Zhang [facility] Start: 10-06-2022 End: 10-06-2022 ambulatory Bryce Zhang Other [facility] Other Start: 10-06-2022 Postop follow up vis it related to original px Bryce Zhang [facility] Start: 08-02-2022 Office outpatient vi sit 15 minutes Bryce Zhang [facility] Start: 08-02-2022 End: 08-02-2022 ambulatory MD Radhika Barragan Work Phone: [facility] Other Start: 08-02-2022 End: 08-02-2022 Patient encounter procedure MD Radhika Barragan Work Phone: [facility] Start: 06-21-2022 Postop follow up vis it related to original px Bryce Leatha [facility] Start: 06-21-2022 End: 06-21-2022 ambulatory Radhika Sams Hojuan Facility:[facility] Start: 06-21-2022 End: 06-21-2022 ambulatory MD Radhika Barragan Work Phone: [facility] Work Phone: Start: 06-21-2022 End: 06-21-2022 Patient encounter procedure MD Radhika Barragan Work Phone: [facility] Start: 05-17-2022 Postop follow up vis it related to original px Bryce Zhang [facility] Start: 05-17-2022 End: 05-17-2022 ambulatory Radhika Barragan Facility:[facility] Start: 05-17-2022 End: 05-17-2022 ambulatory MD Radhika Barragan Work Phone: [facility] Work Phone: Start: 05-17-2022 End: 05-17-2022 Patient encounter procedure MD Radhika Barragan Work Phone: [facility] Start: 05-03-2022 ([facility]) [place] [employer] Bryce Zhang [facility] Start: 05-03-2022 End: 05-03-2022 ambulatory Bryce Zhang Other [facility] Other Start: 04-29-2022 End: 04-29-2022 ambulatory OIDN HOOKER Facility: Start: 08-03-2021 End: 08-03-2021 Patient encounter procedure MORENO MARTINEZ [facility] Start: 07-05-2021 End: 07-06-[address] RADHIKA BARRAGAN Facility:[facility] Procedures Date Procedure Procedure Detail Performing Clinician Start: 08-02-2022 X-ray of left ankle MD Radhika Barragan Work Phone: Start: 06-21-2022 X-ray of left ankle MD Radhika Barragan Work Phone: Start: 05-17-2022 X-ray of left ankle MD Radhika Barragan Work Phone: Start: 02-11-2019 Bypass of stomach BONNIE MARTINEZ Start: 05-07-2008 Heart structure (bod y structure) MORENO MARTINEZ Payers Date Payer Category Payer Private Health Insurance [id number] 2022 Self-pay 1996 Unknown [id number] 1996 Unknown [id number] 1959 Unknown [id number] 1959 Unknown [id number] Private Health Insurance [facility] [id number] Unknown [id number] Unknown [id number] Social History Date Type Detail Facility Start: 08-03-2021 Tobacco smoking status Light t obacco smoker (finding) [facility] Sex Assigned At Male [facility] Start: 1995 Sex Assigned At Male F [facility] Clinical Notes 08-03-2021 to 01-12-2023 Note Date & Type Note Facility 01-12-2023 Evaluation note Encounter Date Diagnosis Assessment Notes Jan, Closed fracture of distal end of left fibula, unspecified fracture morphology, initial encounter (ICD-10 - S82.832A) Pilo returns with a healed left distal fibula fracture. At this juncture we have discussed the findings and diagnosis as well as personally reviewed appropriate imaging and performed interpretation of related testing and examination with the patient in office today. He is return to activities as tolerated without any further issues. He denies any pain at this time. Functioning normally. He returned to work and activities as tolerated without restrictions and follow-up as needed for now The patient has been involved in our cooperative treatment plan and agrees to move forward with treatment at this time. Patient is doing well at this time. He may continue activity as tolerated. May continue working without restrictions. Call with questions/con cerns. [facility] Other 06-02-2023 Evaluation note* Encounter Date Diagnosis Assessment Notes Treatment Notes Treatment Clinical Notes Oct, Closed fracture of distal end of left fibula, unspecified fracture morphology, initial encounter (ICD-10 - S82.832A) Pilo returns with a left distal fibula fracture. At this juncture we have discussed the findings and diagnosis as well as personally reviewed appropriate imaging and performed interpretation of related testing and examination with the patient in office today. He is return to activities as tolerated. He does note some popping with sporting activities but this is random and he is unable to recreate this today. I will him to continue to monitor this closely and I will see him back in about 3 months. If this continues to be an issue we will update x-rays of the left ankle and consider MRI to evaluate for tendon, ligament or cartilage abnormality The patient has been involved in our cooperative treatment plan and agrees to move forward with treatment at this time. Pilo returns 5 months status post closed fracture of distal end of left fibula. Patient states ankle is progressing well. Updated radiographs reviewed and discussed in detail with patient. He continues to progress and heal routinely. Advised him to continue with gentle motion and strengthening exercises. He may return to normal activities as tolerated with no restrictions. We will follow up in 3 months. No radiographs needed at that time. Patient voices understanding and states no further questions at this time. [facility] Other 03-29-2023 Evaluation note* Encounter Date Diagnosis Assessment Notes Treatment Notes Treatment Clinical Notes Jul, Closed fracture of distal end of left fibula, unspecified fracture morphology, initial encounter (ICD-10 - S82.832A) Pilo returns with a left distal fibula fracture. At this juncture we have discussed the findings and diagnosis as well as personally reviewed appropriate imaging and performed interpretation of related testing and examination with the patient in office today. He has continued to progress well wearing normal shoes. He did have a tweak of the ankle about a week ago but that resolved without any issues. He does have some pain here and there but overall continues to improve without any regression. Today he can continue work without restrictions. I will plan to see him back in 2 months for recheck, no x-rays needed if not having any issues The patient has been involved in our cooperative treatment plan and agrees to move forward with treatment at this time. Radiographs reviewed with patient. He is healing well. Instructed on use of OTC ankle support within his boot. Continue activity as tolerated. Call with questions/concern s. [facility] Other 02-15-2023 Evaluation note* Encounter Date Diagnosis Assessment Notes Treatment Notes Treatment Clinical Notes Jun, Closed fracture of distal end of left fibula, unspecified fracture morphology, initial encounter (ICD-10 - S82.832A) Pilo returns with a left distal fibula fracture. At this juncture we have discussed the findings and diagnosis as well as personally reviewed appropriate imaging and performed interpretation of related testing and examination with the patient in office today. He has discontinued his boot and been wearing normal shoes. He does have some pain with putting his boots on but weightbearing is not causing any issue. At this point I would allow him to continue activities as tolerated and progress as tolerated. He can return to work. I will plan to see him back again in 4 to 6 weeks for 1 more set x-rays and to make sure that he is working okay The patient has been involved in our cooperative treatment plan and agrees to move forward with treatment at this time. [facility] DOI 04/28/2022.Pilo returns 8 weeks status post closed fracture of distal end of left fibula. updated radiographs obtained today. Imaging interpretation of related testing and examination with the patient in office today. He continues to progress from injury. Patient has increased range of motion from last visit. I advised him to continue gentle motion and strengthening exercises at home. He may begin to wear normal shoewear and return to work and normal activities as tolerated with no restrictions. We will follow up in 6 weeks time for updated radiographs. Patient voices understanding and states no further questions. [facility] Other 01-11-2023 Evaluation note* Encounter Date Diagnosis Assessment Notes Treatment Notes Treatment Clinical Notes May, Closed fracture of distal end of left fibula, unspecified fracture morphology, initial encounter (ICD-10 - S82.832A) Pilo returns with a left distal fibula fracture. At this juncture we have discussed the findings and diagnosis as well as personally reviewed appropriate imaging and performed interpretation of related testing and examination with the patient in office today. He has been doing some weightbearing inside the boot and working on range of motion outside of the boot. He is improving. Having more good days than bad days. Hence plan to return to work on 06/07 but he does not feel he is ready for this and cannot wear a boot at work. We will push this back. I will plan to see him back in 3 to 4 weeks for repeat x-rays and see if he can start graduation from the boot at that time. Range of motion activities instructed. Continue boot wear The patient has been involved in our cooperative treatment plan and agrees to move forward with treatment at this time. Patient returns 3 weeks s/p [place] distal fibula fracture. Updated radiographs obtained today. X-Rays reviewed and discussed with patient in detail. Patient is progressing routinely from injury. He is to continue in his CAM walking boot and work on gentle motion and strengthening exercises out of the boot at home. He may continue to use anti-inflammatory medication as needed for pain and swelling, also advised to use ice and elevation. We will follow up in 6 weeks time for updated X-Rays. Patient is to remain off of work until follow up appointment. He voices understanding and states no further questions at this time. [facility] Other 12-28-2022 Evaluation note* Encounter Date Diagnosis Assessment Notes Treatment Notes Treatment Clinical Notes Apr, Closed fracture of distal end of left fibula, unspecified fracture morphology, initial encounter (ICD-10 - S82.832A) Right presents with what appears to be a Harmon a distal fibula fracture. X-rays are suboptimal. At this juncture we have discussed the findings and diagnosis as well as personally reviewed appropriate imaging and performed interpretation of related testing and examination with the patient in office today. Prior medical notes from [facility] and history have been reviewed. At this time I would recommend tall walking boot with continued use of crutches.elevation and ice for swelling. We will plan for follow-up 1 to 2 weeks with repeat x-rays including a gravity stress view. The patient has been involved in our cooperative treatment plan and agrees to move forward with treatment at this time. Apr, Other Radiographs reviewed and discussed with patient. The patient appears to have suffered a fracture of the left distal fibula. Patient will be placed in a CAM walking boot today. We will allow progressive gentle ankle motion as pain allows as well as gentle weight bearing. We discussed the importance of icing and elevation of the leg above the heart to prevent swelling. We discussed that this injury will most likely cause pain for many weeks. We will follow up in 2 weeks time for updated radiographs we will obtain a 3 view and gravity view at that time. Patient voices understanding and is agreeable to treatment plan. [facility] Other 03-30-2022 NoteChief Complaint Referral *ED HPI Staff Evaluation requested by Dr Barragan. Pt is a new pt, never before seen in our office. Here today due to ED. Has tried Tadalafil 20mg in the past. Has tried Viagra. Just prescribed Vardenafil 20mg, has not tried yet. Medications help achieve erection but nit maintain erection. Has been ongoing for a couple of months. 07/05/21- Testosterone level 630 ([phone]) Has had this problem in the past, 2yrs ago. At that time they tested testosterone, was low, and hadbeen getting testosterone injections. Stopped taking the injections when his testosterone maintained normal levels. Does admit to increased fatigue. Pt denies any urinary complaints at this time. History of Present Illness staff HPI reviewed and agree. Review of Systems PHQ Score Initial Depression Screen Score: 0 no fever, chills, malaise, myalgia. no rash/lesions. no chest pain, palpitations, or SOB. no abdominal pain, nausea, vomiting. no unilateral calf swelling, redness, pain Physical Exam Vitals & Measurements HR: 69(Peripheral) RR: 16 BP: 132/75 HT: 192 cm HT: 192.0 cm WT: 171.3 kg WT: 171.3 kg BMI: 46.47 General: nontoxic, NAD Mouth: moist mucosa Lungs: normal respiratory effort Cardio: regular rate, good distal perfusion Abdomen: nondistended, no suprapubic distention or tenderness, no CVA tenderness Neurologic: Grossly normal Skin: No rashes or suspicious lesions Assessment/Plan 1. Erectile dysfunction (N52.9: Male erectile dysfunction, unspecified) pt able to achieve erection. has trouble maintaining erection through climax, specifically with hispartner, not every time only sometimes. no issues with masturbation. had extensive discussion w pt regarding etiologies of ED. this pt does not have HTN or DM, no neurodiseases, TSH is normal, testosterone is normal, not on any meds that would cause this. For him, weidentified 2 main long-term contributing factors: tobacco use and obesity. discussed the effects ofnicotine on vasculature and erections. discussed the connection btwn metabolic syndrome and erections. discussed strategies for reducing/quitting tobacco and continued diet/exercise to reduce weight.in the short term, I explained that he should reduce frequency of masturbation or stop all together. this will help improve efficacy with his partner. also discussed penile rings, sizing, and how to use properly to maintain erection. he will try these things for short term improvement, in addition to the vardenafil his PCP prescribed. 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 pt will f/u PRN. Total time spent reviewing previous notes/results/external documents, preparing the chart, conducting the encounter with the patient and family, ordering tests/medications, and documenting the encounter was 35 mins. Ordered: E&M of New Patient Low 30-44 Min [id number] Urnls Dip Stick Auto w/o Microscopy POC [id number] Follow-up With When Contact Information MORENO MARTINEZ Only if needed [address] [place] [address] [place] (1) Additional Instructions: Patient Education Erectile Dysfunction Problem List/Past Medical History Ongoing No qualifying data Historical No qualifying data Procedure/Surgical History Gastric bypass (02/11/2019), Heart (2008). Medications vardenafil 20 mg Tab, 20 mg= 1 tab(s), Oral, Daily, PRN Allergies No active allergies Social History Tobacco 5-9 cigarettes (between 1/4 to 1/2 pack)/day in last 30 days Tobacco Use:. Cigarettes, 08/03/2021 Family History Family history is negative Lab Results Ambulatory Point of Care Results Bilirubin Urine Dipstick: Negative (08/03/21 09:55:00) Blood Urine Dipstick: Negative (08/03/21 09:55:00) Glucose Urine Dipstick: Negative (08/03/21 09:55:00) Ketones Urine Dipstick: Negative (08/03/21 09:55:00) Leukocytes Urine Dipstick: Negative (08/03/21 09:55:00) Nitrite Urine Dipstick: Negative (08/03/21 09:55:00) Protein Urine Dipstick: Negative (08/03/21 09:55:00) Specific [place] Urine Dipstick: 1.020 (08/03/21 09:55:00) Urine Appearance Urine Dipstick: Clear (08/03/21 09:55:00) Urine Color Urine Dipstick: Yellow (08/03/21 09:55:00) Urobilinogen Urine Dipstick: 4 EU/dl (08/03/21 09:55:00) pH Urine Dipstick: 6.5 (08/03/21 09:55:00)[facility]:Result Comment: Electronically Signed By: MORENO MARTINEZ PA-C\Date and Time Signed: 08/03/2210:12 [id number] Hospital Discharge instructions Patient Education 08/03/2021 11:10:10 Erectile Dysfunction Erectile Dysfunction Erectile dysfunction (ED) is the inability to get or keep an erection in order to have sexual intercourse. Erectile dysfunction may include: Inability to get an erection. Lack of enough hardness of the erection to allow penetration. Loss of the erection before sex is finished. What are the causes? This condition may be caused by: Certain medicines, such as: ?Pain relievers. ?Antihistamines. ?Antidepressants. ?Blood pressure medicines. ?Water pills (diuretics). ?Ulcer medicines. ?Muscle relaxants. ?Drugs. Excessive drinking. Psychological causes, such as: ?Anxiety. ?Depression. ?Sadness. ?Exhaustion. ?Performance fear. ?Stress. Physical causes, such as: ?Artery problems. This may include diabetes, smoking, liver disease, or atherosclerosis. ?High blood pressure. ?Hormonal problems, such as low testosterone. ?Obesity. ?Nerve problems. This may include back or pelvic injuries, diabetes mellitus, multiple sclerosis, or Parkinson disease. What are the signs or symptoms? Symptoms of this condition include: Inability to get an erection. Lack of enough hardness of the erection to allow penetration. Loss of the erection before sex is finished. Normal erections at some times, but with frequent unsatisfactory episodes. Low sexual satisfaction in either partner due to erection problems. A curved penis occurring with erection. The curve may cause pain or the penis may be too curved to allow for intercourse. Never having nighttime erections. How is this diagnosed? This condition is often diagnosed by: Performing a physical exam to find other diseases or specific problems with the penis. Asking you detailed questions about the problem. Performing blood tests to check for diabetes mellitus or to measure hormone levels. Performing other tests to check for underlying health conditions. Performing an ultrasound exam to check for scarring. Performing a test to check blood flow to the penis. Doing a sleep study at home to measure nighttime erections. How is this treated? This condition may be treated by: Medicine taken by mouth to help you achieve an erection (oral medicine). Hormone replacement therapy to replace low testosterone levels. Medicine that is injected into the penis. Your health care provider may instruct you how to give yourself these injections at home. Vacuum pump. This is a pump with a ring on it. The pump and ring are placed on the penis and used to create pressure that helps the penis become erect. Penile implant surgery. In this procedure, you may receive: ?An inflatable implant. This consists of cylinders, a pump, and a reservoir. The cylinders can be inflated with a fluid that helps to create an erection, and they can be deflated after intercourse. ?A semi-rigid implant. This consists of two silicone rubber rods. The rods provide some rigidity. They are also flexible, so the penis can both curve downward in its normal position and become straight for sexual intercourse. Blood vessel surgery, to improve blood flow to the penis. During this procedure, a blood vessel from a different part of the body is placed into the penis to allow blood to flow around (bypass) damaged or blocked blood vessels. Lifestyle changes, such as exercising more, losing weight, and quitting smoking. Follow these instructions at home: Medicines Take [id number] and prescription medicines only as told by your health care provider. Do not increase the dosage without first discussing it with your health care provider. If you are using self-injections, perform injections as directed by your health care provider. Makesure to avoid any veins that are on the surface of the penis. After giving an injection, apply pressure to the injection site for 5 minutes. General instructions Exercise regularly, as directed by your health care provider. Work with your health care provider to lose weight, if needed. Do not use any products that contain nicotine or tobacco, such as cigarettes and e-cigarettes. If you need help quitting, ask your health care provider. Before using a vacuum pump, read the instructions that come with the pump and discuss any questionswith your health care provider. Keep all follow-up visits as told by your health care provider. This is important. Contact a health care provider if: You feel nauseous. You vomit. Get help right away if: You are taking oral or injectable medicines and you have an erection that lasts longer than 4 hours. If your health care provider is unavailable, go to the nearest emergency room for evaluation. An erection that lasts much longer than 4 hours can result in permanent damage to your penis. You have severe pain in your groin or abdomen. You develop redness or severe swelling of your penis. You have redness spreading up into your groin or lower abdomen. You are unable to urinate. You experience chest pain or a rapid heart beat (palpitations) after taking oral medicines. Summary Erectile dysfunction (ED) is the inability to get or keep an erection during sexual intercourse. This problem can usually be treated successfully. This condition is diagnosed based on a physical exam, your symptoms, and tests to determine the cause. Treatment varies depending on the cause, and may include medicines, hormone therapy, surgery, orvacuum pump. You may need follow-up visits to make sure that you are using your medicines or devices correctly. Get help right away if you are taking or injecting medicines and you have an erection that lasts longer than 4 hours. This information is not intended to replace advice given to you by your health care provider. Make sure you discuss any questions you have with your health care provider. Document Released: 04/20/2001 Document Revised: 04/05/2018 Document Reviewed: 05/09/2017 [employer] Patient Education 2020 [employer] Follow Up Care 07/14/2021 14:13:52 With:MORENO MARTINEZ Address: [address] [place] [address] Business (1) When: only if needed [facility] evaluation + Plan note No data available for this section [facility] evaluation noteNo assessment information available [facility] Work Phone: [employer] general Narrative - Reported* Type Description Date Medical History left distal fibula fracture Surgical History gastric bypass Hospitalization History see above [facility] Other Summary Purpose Family History No Family History Records FoundNo Family History Records FoundNo Family History Records Found Advance Directives Advance Directive Response Recorded Date/ Time Advance Directives No May 25, 2022 7:40am Advance Directive Response Recorded Date/ Time Advance Directives No May 25, 2022 8:40am Chief Complaint and Reason for Visit Chief Complaint S82.832A Chief Complaint S82.832A s82.832a Additional Source Comments (unrecognized sect ion and content) No Status Records FoundNo Status Records FoundNo Status Records Found INFORMATION SOURCE (unrecogn ized section and content) DATE CREATED AUTHOR 08/05/2021 [facility] DATE CREATED AUTHOR AUTHOR'S ORGANIZ ATION 05/02/2022 [facility] DATE CREATED AUTHOR AUTHOR'S ORGANIZ ATION 08/16/2022 [facility] Care Teams (unrecognized sec tion and content) Team Status: Active Member Role Status Dates Radhika Barragan MD Primary Care Provider Active Team Status: Inactive Member Role Status Dates Radhika Barragan MD Primary Care Provider Active Bryce Zhang DO Attending Provider Active Goals (unrecognized section and content) Goals may be documented in a n alternate section REASON FOR VISIT (unrecogniz ed section and content) ER [facility] LEFT ANKLE FX WX BWC DOI 04/29/22Recheck Left AnkleRecheck Left AnkleRecheck Left AnkleRecheck Left AnkleRecheck Left Ankle FOR RECORDS PERTAINING TO PATIENTS WHO ARE OR HAVE BEEN ENROLLED IN A CHEMICAL DEPENDENCY/SUBSTANCEABUSE PROGRAM, SOME INFORMATION MAY BE OMITTED. This clinical summary was aggregated from multiple sources. Caution should be exercised in using it in the provision of clinical care. This summary normalizes information from multiple sources, and as a consequence, information in this document may materially change the coding, format and clinical context of patient data. In addition, data may be omitted in some cases. CLINICAL DECISIONS SHOULD BE BASED ON THE PRIMARY CLINICAL RECORDS. [employer] provides no warranty or guarantee of the accuracy or completeness of information in this document.
--- NOTE | 2023-10-14 08:26 | XR_ITS ---
The [address] [address] Patient Name: MEREDITH NAPIER MRN: [id number] date: 1995 Sex: M Assigned Patient Location: ER Current Patient Location: ER Accession/Order Number: [id number] Exam Date: 10/14/2023 08:33 Report Date: 10/14/2023 09:01 At the request of: CAMILO ALEXANDER Procedure: XR knee LT 3V PROCEDURE: XR knee LT 3V, 10/14/2023 8:33 AM EDT CLINICAL INDICATIONS: Traumatic injury, stepped in hole, pain COMPARISON: None TECHNIQUE: Left knee 3 images FINDINGS: Acute osseous pathology is not demonstrated. Joint spaces preserved. No knee effusion. Subcutaneous edema and venous varicosities noted. XR/XR knee LT 3V IMPRESSION: 1. No acute osseous pathology 2. Subcutaneous edema and venous varicosities Electronically authenticated by: KATHI RILEY Date: 10/14/2023 09:01
[2023-10-14 08:27] VITALS: BP 118/93; PULSE 81; TEMP 36.6; O2SAT 98; BMI 42.6
--- NOTE | 2023-10-14 08:31 | ED_ITS ---
HPI HPI - General Adult General Chief complaint: Extremity Injury, Lower Stated complaint: left knee pain Time Seen by Provider: 10/14/23 08:19 History of Present Illness HPI narrative: Patient presents ED complaining of left knee pain. He was at a [facility] and he was playing with the dogs in the yard when he stepped into a pothole. He heard a pop and felt his knee twist. He has pain to the posterior and lateral aspect of the knee. He has pain with flexion of the knee. Appears more comfortable and is in extension. No other injury. He said he tried to just deal with it at home but he could not sleep due to the pain last night. No other concerns at this time Related Data Home Medications ?Medication ?Instructions ?Recorded ?Confirmed doxycycline monohydrate 100 mg 100 mg PO Q24H 10/14/23 10/14/23 capsule Allergies Allergy/AdvReac Type Severity Reaction Status Date / Time No Known Drug Allergies Allergy Verified 10/14/23 08:26 Opioid HPI Opioid Management Most Recent Opioid Data: No Data to Display Review of Systems ROS Status of ROS 10 or more systems reviewed and unremark able except as noted in history and below Exam Narrative Exam Narrative: General: alert, no acute distress Cardiovascular: regular rate and rhythm, normal peripheral perfusion. Respiratory: Lungs CTA, respirations non labored. Extremities: no deformity,Tenderness to palpation on the lateral and posterior aspect of the knee. Pain with flexion of the knee. Normal distal pulses and sensation no calf pain Neurological: oriented x 4, LOC appropriate for age. Constitutional Vital Signs, click to edit/add: Last Vital Signs Temp 97.9 F 10/14/23 08:27 Pulse 81 10/14/23 08:27 Resp 18 10/14/23 08:27 BP 118/93 H 10/14/23 08:27 Pulse Ox 98 10/14/23 08:27 O2 Del Method Room Air 10/14/23 08:27 Course Vital Signs Vital signs: Vital Signs Temperature 97.9 F 10/14/23 08:27 Pulse Rate 81 10/14/23 08:27 Respiratory Rate 18 10/14/23 08:27 Blood Pressure 118/93 H 10/14/23 08:27 Pulse Oximetry 98 10/14/23 08:27 Oxygen Delivery Method Room Air 10/14/23 08:27 Temperature 97.9 F 10/14/23 08:27 Pulse Rate 81 10/14/23 08:27 Respiratory Rate 18 10/14/23 08:27 Blood Pressure 118/93 H 10/14/23 08:27 Pulse Oximetry 98 10/14/23 08:27 Oxygen Delivery Method Room Air 10/14/23 08:27 Medical Decision Making MDM Narrative Medical decision making narrative: Knee x-ray nonacute. Patient was placed in an Masoud wrap. Continue Tylenol and Motrin at home ice and elevate the leg. Follow-up with Ortho if this continues to be painful. Return to ED if worsening symptoms or any further concerns. Otherwise follow-up outpatient. Differential Diagnosis Differential Diagnosis: Fracture sprain strain Medical Records Medical records reviewed: Yes I reviewed the patient's medical records Imaging Data Chest x-ray: Radiologist's impression: ITS Impressions Knee X-Ray 10/14/23 08:26 IMPRESSION: 1. No acute osseous pathology 2. Subcutaneous edema and venous varicosities Electronically authenticated by: KATHI RILEY Date: 10/14/2023 09:01 Discharge Plan Discharge Stand Alone Forms: Portal Instructions Chief Complaint: Extremity Injury, Lower Clinical Impression: Knee sprain Patient Disposition: Home, Self-Care Time of Disposition Decision: 09:07 Condition: Good Mode of Transportation: Private Vehicle Prescriptions / Home Meds: No Action doxycycline monohydrate 100 mg capsule 100 mg PO Q24H Print Language: Polish Instructions: Knee Sprain (ED) Referrals: Brando De Jesus MD [Primary Care Provider] - 1 week Michele Potter MD [Physician] - 1 week
[2023-10-14] MEDS: ACETAMINOPHEN 325 MG TABLET 650 MG PO (09:41)
== END 2023-10-14 09:44 | disposition home or self-care (01) ==
PROVIDERS: Emergency Provider Emergency Medicine; PCP Family Medicine
DX: S83.92XA Sprain of unspecified site of left knee, initial encounter (principal); X50.1XXA Overexertion from prolonged static or awkward postures, initial encounter
CPT/HCPCS: 73562; 99283

== ENCOUNTER 2023-10-29 09:29 | Outpatient (OUT) | payer OTHER, SELFPAY ==
--- NOTE | 2023-10-29 | MR_ITS ---
[place] [id number] Patient Name: MEREDITH NAPIER MRN: [id number] date: 1995 Sex: M Assigned Patient Location: [facility] Current Patient Location: [facility] Accession/Order Number: [id number] Exam Date: 10/29/2023 10:00 Report Date: 10/29/2023 12:43 At the request of: CE BOB Procedure: MR knee LT wo con EXAMINATION: MR knee LT wo con HISTORY: Acute pain of left knee M25.562 COMPARISON: No relevant comparison available. TECHNIQUE: A complete multi-planar MRI was performed. FINDINGS: MEDIAL COMPARTMENT MEDIAL MENISCUS: No visible tear or significant degeneration. CARTILAGE: No visible defect. BONES: No marrow pathology, fracture, or significant arthropathy. MCL AND MEDIAL CAPSULE: Normal medial collateral ligament and medial capsule. LATERAL COMPARTMENT LATERAL MENISCUS: No visible tear or significant degeneration. CARTILAGE: No visible defect. BONES: No marrow pathology, fracture, or significant arthropathy. LCL/POSTEROLAT COMPLEX: Normal lateral collateral ligament, fascicles, lateral capsule and ligaments. ANTERIOR COMPARTMENT PATELLA: No marrow pathology, fracture, or significant arthropathy. CARTILAGE: No visible defect. TENDONS: Normal. EFFUSION: None. No synovitis or loose bodies. ACL: Thickened ill-defined ligament consistent with a complete tear PCL: Normal appearing ligament. MENISCOFEMORAL: Normal meniscofemoral ligaments. OTHER: Negative. MR/MR knee LT wo con IMPRESSION: Complete tear of the anterior cruciate ligament Electronically authenticated by: FLORA BELL Date: 10/29/2023 12:43
--- NOTE | 2023-10-29 09:40 | XR_ITS ---
The [address] [address] Patient Name: MEREDITH NAPIER MRN: [id number] date: 1995 Sex: M Assigned Patient Location: RAD Current Patient Location: RAD Accession/Order Number: [id number] Exam Date: 10/29/2023 09:52 Report Date: 10/29/2023 10:18 At the request of: CE BOB Procedure: XR foreign body eye JARET EXAM: XR foreign body eye JARET HISTORY: Protruding sternal wires COMPARISON: None TECHNIQUE: AP and lateral views of the orbits were obtained. FINDINGS: No evidence of opaque foreign body including metal fragment seen in the orbits. Orbital sexton appear intact. XR/XR foreign body eye JAERT IMPRESSION: No evidence of opaque foreign body including metal fragment seen in the orbits. Electronically authenticated by: JESSE ACOSTA Date: 10/29/2023 10:18
--- NOTE | 2023-10-29 09:40 | XR_ITS ---
The [address] [address] Patient Name: MEREDITH NAPIER MRN: [id number] date: 1995 Sex: M Assigned Patient Location: RAD Current Patient Location: RAD Accession/Order Number: [id number] Exam Date: 10/29/2023 09:52 Report Date: 10/29/2023 10:32 At the request of: CE BOB Procedure: XR chest 2V EXAMINATION: XR chest 2V HISTORY: Foreign body of cornea COMPARISON: No relevant comparison available. TECHNIQUE: PA and lateral FINDINGS: LUNGS: No significant pulmonary parenchymal abnormalities. Low lung lines VASCULATURE: No increased pulmonary vasculature. PLEURA: No pneumothorax, effusion, or pleural thickening. CARDIAC: No cardiomegaly or cardiac silhouette abnormality. MEDIASTINUM: No visible mass or adenopathy. Median sternotomy wires. Fracture of the most inferior wire BONES: No fracture or visible bone lesion. OTHER: Negative. XR/XR chest 2V IMPRESSION: No acute cardiopulmonary process Electronically authenticated by: FLORA BELL Date: 10/29/2023 10:32
--- OUTSIDE RECORDS SUMMARY | 2023-10-29 09:50 | XMS_ITS | CCD ---
Author Organization [facility] Care Team Providers Care Insurance Agency Manager Name Role Phone Radhika Barragan Primary Care Physician [phone] ODIN HOOKER Primary Care Unavailable KATHERINE LOMBARDI Consulting Unavailable KATHERINE LOMBARDI Admitting Unavailable KATHERINE LOMBARDI Attending Unavailable PHILIP BUSBY Consulting Unavailable DR RADHIKA BARRAGAN Admitting Unavailable DR RADHIKA BARRAGAN Attending Unavailable ODIN HOOKER Primary Care Unavailable DR RADHIKA BARRAGAN Consulting Unavailable MD Radhika Barragan Primary Care Provider [phone] DO Bryce Zhang Attending Provider [phone] Bryce Zhang Unavailable MD Radhika Barragan Primary Care Provider [phone] DO Bryce Zhang Attending Provider [phone] Radhika Barragan Primary Care Unavailable Bryce Zhang [...] 3V*on 2022 XR ankle LT min 3V* [facility] [employer] Other XR ankle LT min 3V* [facility] [employer] Other XR ankle LT min 3V* [address] [place] [address] [employer] Other XR ankle LT min 3V* [place] [address] [facility] [employer] Other XR ankle LT min 3V* XRay Report [place] [employer] Other XR ankle LT min 3V* Signed [facility] [employer] Other XR ankle LT min 3V* Patient: Pilo Johnson MR#: [id number] [employer] Other XR ankle LT min 3V* 2 [employer] Other XR ankle LT min 3V* : 1995 Acct:[id number] [employer] Other XR ankle LT min 3V* Age/Sex: 27 / M ADM Date: 08/02/22 [employer] Other XR ankle LT min 3V* Loc: [facility] Room: Type: [facility] [employer] Other XR ankle LT min 3V* Attending Dr: Bryce Zhang DO [employer] Other XR ankle LT min 3V* Copies to: Bryce Zhang DO [employer] Other XR ankle LT min 3V* Ordering Provider: Bryce Zhang DO [employer] Other XR ankle LT min 3V* Date of Service: 08/02/22 [employer] Other XR ankle LT min 3V* XR/XR ankle LT min 3V*: Closed fracture of distal end of left fibula, [employer] Other XR ankle LT min 3V* unspecified fr N [facility] [employer] Other XR ankle LT min 3V* LEFT ANKLE - 3 views [employer] Other XR ankle LT min 3V* CLINICAL HISTORY: Follow-up left distal fibular fracture [employer] Other XR ankle LT min 3V* COMPARISON: Left ankle 06/21/2022 [employer] Other XR ankle LT min 3V* FINDINGS: [employer] Other XR ankle LT min 3V* Soft tissue swelling is still present. Fracture is grossly unchanged alignment and healing. Ankle [employer] Other XR ankle LT min 3V* mortise appears intact. [employer] Other XR ankle LT min 3V* XR/XR ankle LT min 3V* [employer] Other XR ankle LT min 3V* IMPRESSION: Nort [employer] Other XR ankle LT min 3V* DISTAL FIBULAR FRACTURE, GROSSLY UNCHANGED. [employer] Other XR ankle LT min 3V* Impression dictated by: Kalia Luke Jr., D.O.08/02/2022 10:50 AM [employer] Other XR ankle LT min 3V* Dictation Location: [place] [address] [employer] Other XR ankle LT min 3V* Transcribed By: PWS 08/02/22 1050 [employer] Other XR ankle LT min 3V* Dictated By: Kalia Luke Jr, DO 08/02/22 1049 [employer] Other XR ankle LT min 3V* Signed By: [employer] Other XR ankle LT min 3V* 08/02/22 1050 No [employer] ([employer]) Other XR ankle LT min 3V* [facility] Main [place] [address] [place] [address] XRay Report Signed Patient: Pilo Johnson MR#: [id number] 2 : 1995 Acct:[id number] Age/Sex: 27 / M ADM Date: 08/02/22 Loc: [facility] Room: Type: [facility] CLI Attending Dr: Bryce Zhang DO Copies to: Bryce Zhang DO Ordering Provider: Bryce Zahng DO Date of Service: 08/02/22 XR/XR ankle [...] UNCHANGED. Impression dictated by: Kalia Luke Jr., Sena08/02/2022 10:50 AM Dictation Location: [facility] Transcribed By: [facility] 08/02/22 1050 Dictated By: Kalia Luke Jr, DO 08/02/22 1049 Signed By: 08/02/22 1050 Normal [facility] XR ankle LT min 3V*on 2022 XR ankle LT min 3V* [facility] Other XR ankle LT min 3V* [facility] [employer] Other XR ankle LT min 3V* [address] [place] [address] [employer] Other XR ankle LT min 3V* [place] [address] [employer] Other XR ankle LT min 3V* XRay Report [place] [employer] Other XR ankle LT min 3V* Signed [employer] Other XR ankle LT min 3V* Patient: Pilo Johnson MR#: [id number] [employer] Other XR ankle LT min 3V* 2 [employer] Other XR ankle LT min 3V* : 1995 Acct:[id number] [employer] Other XR ankle LT min 3V* Age/Sex: 27 / M ADM Date: 06/21/22 [employer] Other XR ankle LT min 3V* Loc: [place] Room: Type: [facility] [employer] Other XR ankle LT min 3V* Attending Dr: Bryce Zhang DO [employer] Other XR ankle LT min 3V* Copies to: Bryce Zhang DO [employer] Other XR ankle LT min 3V* Ordering Provider: Bryce Zhang DO [employer] Other XR ankle LT min 3V* Date of Service: 06/21/22 [employer] Other XR ankle LT min 3V* XR/XR ankle LT min 3V*: Closed fracture of distal end of left fibula, [employer] Other XR ankle LT min 3V* unspecified fr N [employer] Other XR ankle LT min 3V* LEFT ANKLE - 3 views [employer] Other XR ankle LT min 3V* CLINICAL HISTORY: Follow-up left distal fibular fracture. [employer] Other XR ankle LT min 3V* COMPARISON: Left ankle 05/17/2022 [employer] Other XR ankle LT min 3V* FINDINGS: [employer] Other XR ankle LT min 3V* Soft tissue swelling is noted. Interval callus formation involving the distal fibular fracture [employer] Other XR ankle LT min 3V* suggestive of healing response. No change in alignment. Ankle mortise appears intact. [employer] Other XR ankle LT min 3V* XR/XR ankle LT min 3V* [employer] Other XR ankle LT min 3V* IMPRESSION: Nort [employer] Other XR ankle LT min 3V* HEALING DISTAL FIBULAR FRACTURE. [employer] Other XR ankle LT min 3V* Impression dictated by: Yenni Pena Jr.OXiomara06/21/2022 10:09 AM [employer] Other XR ankle LT min 3V* Dictation Location: [place] [address] [employer] Other XR ankle LT min 3V* Transcribed By: BEN 06/21/22 1009 [facility] [employer] Other XR ankle LT min 3V* Dictated By: Kalia Luke Jr, DO 06/21/22 1009 [facility] [employer] Other XR ankle LT min 3V* Signed By: [place] [employer] Other XR ankle LT min 3V* 06/21/22 1009 [facility] [employer] Other XR ankle LT min 3V* [facility] Main [address] [address] XRay Report Signed Patient: Pilo Johnson MR#: [id number] 2 : 1995 Acct:[id number] Age/Sex: 27 / M ADM Date: 06/21/22 Loc: [facility] Room: Type: [facility] Attending Dr: Bryce Zhang DO Copies to: [...] Luke Jr., D.OXiomara06/21/2022 10:09 AM Dictation Location: [place] [address] Transcribed By: BEN 06/21/22 1009 Dictated By: Kalia Luke Jr, DO 06/21/22 1009 Signed By: 06/21/22 1009 Normal [facility] XR ankle LT min 3V*on 2022 XR ankle LT min 3V* [facility] Main [address] [address] XRay Report Signed Patient: Pilo Johnson MR#: [id number] 2 : 1995 Acct:[id number] Age/Sex: 27 / M ADM Date: 05/17/22 Loc: [facility] Room: Type: [facility] Attending Dr: Bryce Zhang DO Copies to: [...] Luke Jr., D.O.05/17/2022 2:58 PM Dictation Location: [place] [address] Transcribed By: [facility] 05/17/22 1458 Dictated By: Kalia Luke Jr, DO 05/17/22 1457 Signed By: 05/17/22 1458 Normal [facility] XR ankle LT min 3V* [facility] [employer] Other XR ankle LT min 3V* [facility] Main [facility] [employer] Other XR ankle LT min 3V* [address] [place] [address] [employer] Other XR ankle LT min 3V* [place] [address] [facility] [employer] Other XR ankle LT min 3V* XRay Report [employer] Other XR ankle LT min 3V* Signed [employer] Other XR ankle LT min 3V* Patient: Pilo Johnson MR#: [id number] [facility] [employer] Other XR ankle LT min 3V* 2 [employer] Other XR ankle LT min 3V* : 1995 Acct:[id number] [employer] Other XR ankle LT min 3V* Age/Sex: 27 / M ADM Date: 05/17/22 [employer] Other XR ankle LT min 3V* Loc: [facility] [employer] Other XR ankle LT min 3V* Attending Dr: Bryce Zhang DO [employer] Other XR ankle LT min 3V* Copies to: Bryce Zhang DO [employer] Other XR ankle LT min 3V* Ordering Provider: Bryce Zhang DO [employer] Other XR ankle LT min 3V* Date of Service: 05/17/22 [employer] Other XR ankle LT min 3V* XR/XR ankle LT min 3V*: Closed fracture of distal end of left fibula, [employer] Other XR ankle LT min 3V* unspecified fr N [employer] Other XR ankle LT min 3V* LEFT ANKLE - 3 views [employer] Other XR ankle LT min 3V* CLINICAL HISTORY: Follow-up post fracture distal end left fibula. [employer] Other XR ankle LT min 3V* COMPARISON: Left ankle 04/29/2022 [employer] Other XR ankle LT min 3V* FINDINGS: [employer] Other XR ankle LT min 3V* Soft tissue swelling is noted. Fracture involving the distal fibula grossly unchanged in alignment [employer] Other XR ankle LT min 3V* with fracture line less conspicuous suggestive of healing response. Ankle mortise appears intact. [employer] Other XR ankle LT min 3V* XR/XR ankle LT min 3V* [employer] Other XR ankle LT min 3V* IMPRESSION: [employer] Other XR ankle LT min 3V* HEALING DISTAL FIBULAR FRACTURE. [employer] Other XR ankle LT min 3V* Impression dictated by: Kalia Luke Jr., D.OXiomara05/17/2022 2:58 PM [employer] Other XR ankle LT min 3V* Dictation Location: [place] [address] [employer] Other XR ankle LT min 3V* Transcribed By: PWS 05/17/22 [facility] [employer] Other XR ankle LT min 3V* Dictated By: Kalia Luke Jr DO 05/17/22 145 [employer] Other XR ankle LT min 3V* Signed By: [employer] Other XR ankle LT min 3V* 05/17/22 1458 No rt [employer] Other XR TIB_FIB LT 2Von 2 XR [...] by: PHILIP BUSBY Date: 2022-04-29 11:37 Normal [facility] Ambulatory Visit Summaryon 0 08-03-2021 Ambulatory Visit Summary PILO JOHNSON :1995 Visit Date:08/03/2021 Ambulatory Visit Instructions Your Diagnosis Erectile dysfunction Tests Performed Urnls Dip Stick Auto w/o Microscopy POC 69092 Your Care Team Attending Physician - MORENO [...] Urnls Dip Stick Auto w/o Microscopy POC 98596 (08/03/2021) Bilirubin Urine Dipstick - Negative Blood Urine Dipstick - Negative Glucose Urine Dipstick - Negative Ketones Urine Dipstick - Negative Leukocytes Urine Dipstick - Negative Nitrite Urine Dipstick - Negative Protein Urine Dipstick - Negative Specific [place] Urine Dipstick - 1.020 Urine Appearance Urine Dipstick - Clear Urine Color Urine Dipstick - Yellow Urobilinogen Urine Dipstick - 4 EU/dl pH Urine Dipstick - 6.5 Allergies No active allergies Normal [facility] Lab Reportson 08-03-2021 Lab Reports [id number]:127 Normal [facility] Patient Educationon 08-04-19 22 Patient Education Urology [...] these instructions at home: Medicines ? Take nwoy-dtu-zmwsdrz and prescription medicines only as told by [...] of your (more content not included)... Normal [facility] TESTOSTERONE, FREE,DIRECT, T Tico 07-07-2021 Free Testosterone(Direct) 10.5 pg/mL Normal 9.3-26.5 [facility] Comment on above: Result Comment: Perf ormed at: BN Performed By: #### T ESTFRD #### [facility] [address] [place] [address] [address] eLonor Galicia Testosterone [Mass/Vol] 630 ng/dL Normal 264-916 [facility] Comment on above: Result Comment: Adul t male reference interval is based on a population of healthy nonobese males (BMI <30) between 19 and 39 years old. Jamel et.al. JCEM 2017,102;9900-9221. PMID: [id number]. Performed at: CB Performed By: #### T ESTFRD #### [facility] [address] [place] [address] Dr. Leonor Galicia INSULINon 07-06-2021 Insulin 16.1 uIU/mL Normal 2.6-24.9 [facility] Comment on above: Performed By: #### I NSULIN #### [facility] [address] [place] [address] Dr. Leonor Galicia CBC AUTO DIFFon 07-05-2021 BASO # 0.1 103/ul Normal 0.0-0.1 [facility] Comment on above: Performed By: #### C BC #### [facility] [address] [place] [address] Dr. Leonor Galicia Basophils/100 WBC (Bld) 0.7 % Normal 0.2-2.0 [facility] Comment on above: Performed By: #### C BC #### [facility] [address] [place] [address] Dr. Leonor Galicia EO # 0.4 103/ul Normal 0.0-0.7 [facility] Comment on above: Performed By: #### C BC #### [facility] [address] [place] [address] Dr. Leonor Galicia Eosinophils/100 WBC (Bld) 6.3 % Normal 0.9-7.0 [facility] Comment on above: Performed By: #### C BC #### [facility] [address] [place] [address] Dr. Leonor Galicia Erythrocyte distribution width (RBC) [Ratio] 13.8 % Normal 11.0-15.0 [facility] Comment on above: Performed By: #### C BC #### [facility] [address] [place] [address] Dr. Leonor Galicia Hematocrit (Bld) [Volume fraction] 44.9 % Normal 42.0-54.0 [facility] Comment on above: Performed By: #### C BC #### [facility] [address] [place] [address] Dr. Leonor Galicia Hemoglobin (Bld) [Mass/Vol] 15.0 g/dL Normal 14.0-18.0 [facility] Comment on above: Performed By: #### C BC #### [facility] [address] [place] [address] Dr. Leonor Galicia IG # 0.02 10e3/ul Normal 0.00-0.03 [facility] Comment on above: Performed By: #### C BC #### [facility] [address] [place] [address] Dr. Leonor Galicia IG % 0.3 % Normal 0.0-0.5 [facility] Comment on above: Performed By: #### C BC #### [facility] [address] [place] [address] Dr. Leonor Galicia LYMPH # 2.2 103/ul Normal 1.2-3.8 [facility] Comment on above: Performed By: #### C BC #### [facility] [address] [place] [address] Dr. Leonor Galicia Lymphocytes/100 WBC (Bld) 31.9 % Normal 20.5-60.0 [facility] Comment on above: Performed By: #### C BC #### [facility] [address] [place] [address] Dr. Leonor Galicia MANUAL DIFF REQ NO Normal [facility] Comment on above: Performed By: #### C BC #### [facility] [address] [place] [address] Dr. Leonor Galicia MCH (RBC) [Entitic mass] 30.8 pg Normal 25.9-34.0 [facility] Comment on above: Performed By: #### C BC #### [facility] [address] [place] [address] Dr. Leonor Galicia MCHC (RBC) [Mass/Vol] 33.4 g/dL Normal 29.9-35.2 [facility] Comment on above: Performed By: #### C BC #### [facility] [address] [place] [address] Dr. Leonor Galicia MCV (RBC) [Entitic vol] 92.2 fL Normal 80.0-94.0 [facility] Comment on above: Performed By: #### C BC #### [facility] [address] [place] [address] Dr. Leonor Galicia MONO # 0.7 103/ul Normal 0.3-0.8 [facility] Comment on above: Performed By: #### C BC #### [facility] [address] [address] [address] Leonor Galicia Monocytes/100 WBC (Bld) 9.5 % Normal 1.7-12.0 [facility] Comment on above: Performed By: #### C BC #### [facility] [address] [place] [address] Dr. Leonor Galicia NEUT # 3.6 103/ul Normal 1.4-6.5 [facility] Comment on above: Performed By: #### C BC #### [facility] [address] [place] [address] Dr. Leonor Galicia Neutrophils/100 WBC (Bld) 51.3 % Normal 43.0-75.0 [facility] Comment on above: Performed By: #### C BC #### [facility] [address] [place] [address] Dr. Leonor Galicia Platelet mean volume (Bld) [Entitic vol] 12.9 fL Normal 9.5-13.5 [facility] Comment on above: Performed By: #### C BC #### [facility] [address] [place] [address] Dr. Leonor Galicia PLT 148 103/ul Critically low 150-450 [facility] Comment on above: Performed By: #### C BC #### [facility] [address] [place] [address] Dr. Leonor Galicia RBC 4.87 106/ul Normal 4.70-6.10 [facility] Comment on above: Performed By: #### C BC #### [facility] [address] [place] [address] Dr. Leonor Galicia WBC 6.9 103/ul Normal 4.0-11.0 [facility] Comment on above: Performed By: #### C BC #### [facility] [address] [place] [address] [address] Leonor Galicia FREE THYROXINE INDEX T7on FTI 3.04 Normal [facility] Comment on above: Performed By: #### L IPID, CMP, TSH, T7 #### [facility] [address] [place] [address] Dr. Leonor Galicia T3U 38.0 % Normal 23.5-40.5 [facility] Comment on above: Performed By: #### L IPID, CMP, TSH, T7 #### [facility] [address] [place] [address] Dr. Leonor Galicia T4 [Mass/Vol] 8.00 ug/dL Normal 5.53-11.00 [facility] Comment on above: Performed By: #### L IPID, CMP, TSH, T7 #### [facility] [address] [place] [address] Dr. Leonor Galicia GLYCOHEMOGLOBIN A1Con 2021 ADA RECOMMENDATION ADA THERAPEUTIC TARGET 6.0 - 7.0 ACTION SUGGESTED > 7.0 Normal [facility] Comment on above: Performed By: #### A 1C #### [facility] [address] [place] [address] Dr. Leonor Galicia Glucose [Mass/Vol] 97 mg/dL Normal [facility] Comment on above: Performed By: #### A 1C #### [facility] [address] [place] [address] Dr. Leonor Galicia HbA1c (Bld) [Mass fraction] 5.0 % Normal <=6.0 [facility] Comment on above: Performed By: #### A 1C #### [facility] [address] [place] [address] Dr. Leonor Galicia IRONon 07-05-2021 Iron [Mass/Vol] 96.0 ug/dL Normal 49.0-181.0 [facility] Comment on above: Performed By: #### L IPID, CMP, TSH, T7 #### [facility] [address] [place] [address] Dr. Leonor Galicia LIPID PROFILEon 07-05-2021 CHOL-HDL RATIO NORM SEE BELOW Normal [facility] Comment on above: Result Comment: 3.3 - 4.4 LOW RISK 4.4 - 7.1 AVERAGE RISK 7.1 - 11.0 MODERATE RISK >11.0 HIGH RISK Performed By: #### L IPID, CMP, TSH, T7 #### [facility] [address] [address] [address] Leonor Galicia Cholesterol [Mass/Vol] 134 mg/dL Normal <=200 [facility] Comment on above: Performed By: #### L IPID, CMP, TSH, T7 #### [facility] [address] [address] [address] Leonor Galicia Cholesterol in HDL [Mass/Vol] 50 mg/dL Normal [facility] Comment on above: Performed By: #### L IPID, CMP, TSH, T7 #### [facility] [address] [address] [address] Leonor Galicia Cholesterol in LDL [Mass/Vol] 67.6 mg/dL Normal [facility] Comment on above: Performed By: #### L IPID, CMP, TSH, T7 #### [facility] [address] [address] [address] Leonor Galicia Cholesterol.total/Ch olesterol in HDL [Mass ratio] 2.7 {ratio} Normal [facility] Comment on above: Performed By: #### L IPID, CMP, TSH, T7 #### [facility] [address] [address] [address] Leonor Galicia HDL NORMAL > or = 60 mg/dl - LOW CARDIOVASCULAR RISK <40 mg/dl - HIGH CARDIOVASCULAR RISK Normal [facility] Comment on above: Performed By: #### L IPID, CMP, TSH, T7 #### [facility] [address] [address] [address] Leonor Galicia LDL CALC NORMAL SEE BELOW Normal [facility] Comment on above: Result Comment: <100 mg/dl OPTIMAL 100 - 129 mg/dl NEAR OR ABOVE OPTIMAL 130 - 159 mg/dl BORDERLINE HIGH 160 - 189 mg/dl HIGH >190 mg/dl VERY HIGH Performed By: #### L IPID, CMP, TSH, T7 #### [facility] [address] [address] [address] Leonor Galicia Triglyceride [Mass/Vol] 82 mg/dL Normal <=150 [facility] Comment on above: Performed By: #### L IPID, CMP, TSH, T7 #### [facility] [address] [address] [address] Leonor Galicia VLDL CALC 16.4 mg/dL Normal [facility] Comment on above: Performed By: #### L IPID, CMP, TSH, T7 #### [facility] [address] [address] [address] Leonor Galicia PROF 14(COMP METB)on 022 Albumin [Mass/Vol] 3.5 g/dL Normal 3.5-5.0 [facility] Comment on above: Performed By: #### L IPID, CMP, TSH, T7 #### [facility] [address] [address] [address] Leonor Galicia Albumin/Globulin [Mass ratio] 0.9 {ratio} Normal [facility] Comment on above: Performed By: #### L IPID, CMP, TSH, T7 #### [facility] [address] [address] [address] Leonor Galicia ALP [Catalytic activity/Vol] 89 U/L Normal 38-126 [facility] Comment on above: Performed By: #### L IPID, CMP, TSH, T7 #### [facility] [address] [address] [address] Leonor Galicia ALT [Catalytic activity/Vol] 28 U/L Normal 21-72 [facility] Comment on above: Performed By: #### L IPID, CMP, TSH, T7 #### [facility] [address] [place] [address] Dr. Leonor Galicia Anion gap [Moles/Vol] 7.3 mmol/L Normal [facility] Comment on above: Performed By: #### L IPID, CMP, TSH, T7 #### [facility] [address] [place] [address] Dr. Leonor Galicia AST [Catalytic activity/Vol] 18 U/L Normal 17-59 [facility] Comment on above: Performed By: #### L IPID, CMP, TSH, T7 #### [facility] [address] [address] [address] Leonor Galicia Bilirubin [Mass/Vol] 1.1 mg/dL Normal 0.2-1.3 [facility] Comment on above: Performed By: #### L IPID, CMP, TSH, T7 #### [facility] [address] [place] [address] Dr. Leonor Galicia Calcium [Mass/Vol] 9.2 mg/dL Normal 8.4-10.2 [facility] Comment on above: Performed By: #### L IPID, CMP, TSH, T7 #### [facility] [address] [place] [address] Dr. Leonor Galicia Chloride [Moles/Vol] 107 mmol/L Normal 98-107 [facility] Comment on above: Performed By: #### L IPID, CMP, TSH, T7 #### [facility] [address] [place] [address] Dr. Leonor Galicia CO2 [Moles/Vol] 28.9 mmol/L Normal 22.0-30.0 [facility] Comment on above: Performed By: #### L IPID, CMP, TSH, T7 #### [facility] [address] [place] [address] Dr. Leonor Galicia Creatinine [Mass/Vol] 0.74 mg/dL Normal 0.66-1.25 [facility] Comment on above: Performed By: #### L IPID, CMP, TSH, T7 #### [facility] [address] [place] [address] Dr. Leonor Galicia EGFR-AF DANISH >156 Normal >=60 [facility] Comment on above: Performed By: #### L IPID, CMP, TSH, T7 #### [facility] [address] [place] [address] Dr. Leonor Galicia EGFR-NON AF DANISH >129 Normal >=60 [facility] Comment on above: Performed By: #### L IPID, CMP, TSH, T7 #### [facility] [address] [address] [address] Leonor Galicia Globulin (S) [Mass/Vol] 3.7 g/dL Normal [facility] Comment on above: Performed By: #### L IPID, CMP, TSH, T7 #### [facility] [address] [address] [address] Leonor Galicia Glucose [Mass/Vol] 83 mg/dL Normal 74-106 [facility] Comment on above: Performed By: #### L IPID, CMP, TSH, T7 #### [facility] [address] [address] [address] Leonor Galicia Potassium [Moles/Vol] 4.2 mmol/L Normal 3.4-5.0 [facility] Comment on above: Performed By: #### L IPID, CMP, TSH, T7 #### [facility] [address] [place] [address] Dr. Leonor Galicia Protein [Mass/Vol] 7.2 g/dL Normal 6.1-8.2 [facility] Comment on above: Performed By: #### L IPID, CMP, TSH, T7 #### [facility] [address] [place] [address] Dr. Leonor Galicia Sodium [Moles/Vol] 139 mmol/L Normal 137-145 [facility] Comment on above: Performed By: #### L IPID, CMP, TSH, T7 #### [facility] [address] [address] [address] Leonor Galicia Urea nitrogen [Mass/Vol] 12.0 mg/dL Normal 9.0-20.0 [facility] Comment on above: Performed By: #### L IPID, CMP, TSH, T7 #### [facility] [address] [place] [address] Dr. Leonor Galicia Urea nitrogen/Creatinine [Mass ratio] 16.2 mg/mg Normal [facility] Comment on above: Performed By: #### L IPID, CMP, TSH, T7 #### [facility] [address] [address] [address] Leonor Galicia TSHon 07-05-2021 TSH 1.870 uIU/mL Normal 0.470-4.680 [facility] Comment on above: Performed By: #### L IPID, CMP, TSH, T7 #### [facility] [address] [address] [address] Leonor Galicia TSH RANGE SEE BELOW Normal [facility] Comment on above: Result Comment: <0.3 4 UIU/ml HYPERTHYROID 0.34-5.60 UIU/ml EUTHYROID >5.60 UIU/ml HYPOTHYROID Performed By: #### L IPID, CMP, TSH, T7 #### [facility] [address] [address] [address] Leonor Galicia Vital Signs Date Time Vital Sign Value Performing Clinician Facility 06-21-2022 09:15-0500 Body height 193.04 cm Bryce Zhang Other [facility] Other 06-21-2022 09:15-0500 Body mass index (BMI) [Ratio] 46.25 kg/m2 Bryce Zhang Other [facility] Other 06-21-2022 09:15-0500 Body weight 172.37 kg Bryce Zhang Other [facility] Other 05-03-2022 09:00-0500 Body height 193.04 cm Bryce Zhang Other [facility] Other 05-03-2022 09:00-0500 Body mass index (BMI) [Ratio] 42.6 kg/m2 Bryce Zhang Other [facility] Other 05-03-2022 09:00-0500 Body weight 158.76 kg Bryce Zhang Other [facility] Other 08-03-2021 09:56-0400 Blood Pressure Location MORENO MARTINEZ [facility] [place] 08-03-2021 09:56-0400 Diastolic blood pressure 75 mm[Hg] MORENO MARTINEZ [facility] [place] 08-03-2021 09:56-0400 Heart rate 69 /min MORENO MARTINEZ [facility] [place] 08-03-2021 09:56-0400 Respiratory rate 16 /min MORENO MARTINEZ [facility] [place] 08-03-2021 09:56-0400 Systolic blood pressure 132 mm[Hg] MORENO MARTINEZ [facility] [place] Encounters Encounter Date Encounter Type Care Provider Facility Start: 01-12-2023 End: 01-12-2023 ambulatory Bryce Zhang Other [facility] Other Start: 01-12-2023 Office outpatient vi sit 15 minutes Bryce Zhang [facility] Start: 10-06-2022 End: 10-06-2022 ambulatory Bryce Zhang Other [facility] Other Start: 10-06-2022 Postop follow up vis it related to original px Bryce Zhang [facility] Start: 08-02-2022 Office outpatient vi sit 15 minutes Bryce Zhang [facility] Start: 08-02-2022 End: 08-02-2022 ambulatory MD Radhika Barragan Work Phone: [facility] Other Start: 08-02-2022 End: 08-02-2022 Patient encounter procedure MD Radhika Barragan Work Phone: [facility] Start: 06-21-2022 Postop follow up vis it related to original px Bryce Leatha [facility] Start: 06-21-2022 End: 06-21-2022 ambulatory Radhika Flaquita Hojuan Facility:[facility] Start: 06-21-2022 End: 06-21-2022 ambulatory MD Radhika Barragan Work Phone: [facility] Work Phone: Start: 06-21-2022 End: 06-21-2022 Patient encounter procedure MD Radhika Barragan Work Phone: [facility] Start: 05-17-2022 Postop follow up vis it related to original px Bryce Zhang [facility] Start: 05-17-2022 End: 05-17-2022 ambulatory Radhika Sams Fernandojuan Facility:[facility] Start: 05-17-2022 End: 05-17-2022 ambulatory MD Radhika Barragan Work Phone: [facility] Work Phone: Start: 05-17-2022 End: 05-17-2022 Patient encounter procedure MD Radhika Barragan Work Phone: [facility] Start: 05-03-2022 ([facility]) [place] [employer] Bryce Zhang [facility] Start: 05-03-2022 End: 05-03-2022 ambulatory Bryce Zhang Other [facility] Other Start: 04-29-2022 End: 04-29-2022 ambulatory ODIN HOOKER Facility: Start: 08-03-2021 End: 08-03-2021 Patient encounter procedure MORENO MARTINEZ [facility] Start: 07-05-2021 End: 07-06-[address] RADHIKA [...] Payer Category Payer Private Health Insurance [id number] 2022 Self-pay 1996 Unknown [id number] 1996 Unknown [id number] 1959 Unknown [id number] 1959 Unknown [id number] Private Health Insurance [facility] [id number] Unknown [id number] Unknown [id number] Unknown [id number] Social History Date Type Detail Facility Start: 08-03-2021 Tobacco smoking status Light t obacco smoker (finding) [facility] Sex Assigned At Male [facility] Start: 1995 Sex Assigned At Male F [facility] Clinical Notes 08-03-2021 to 01-12-2023 Note Date [...] continue working without restrictions. Call with questions/con eliseons. [facility] Other 06-02-2023 Evaluation note* Encounter Date Diagnosis [...] states no further questions at this time. [facility] Other 03-29-2023 Evaluation note* Encounter Date Diagnosis [...] activity as tolerated. Call with questions/concern s. [facility] Other 02-15-2023 Evaluation note* Encounter Date Diagnosis [...] move forward with treatment at this time. [facility] DOI 04/28/2022.Pilo returns 8 weeks status post [...] voices understanding and states no further questions. [facility] Other 01-11-2023 Evaluation note* Encounter Date Diagnosis [...] states no further questions at this time. [facility] Other 12-28-2022 Evaluation note* Encounter Date Diagnosis [...] in office today. Prior medical notes from [place] [facility] and history have been reviewed. At [...] understanding and is agreeable to treatment plan. [facility] Other 03-30-2022 NoteChief Complaint Referral *ED HPI [...] couple of months. 07/05/21- Testosterone level 630 ([phone]) Has had this problem in the past, [...] his PCP prescribed. he understands that for ocean transportation intermediary solution he will need to be serious with weight loss and tobacco cessation. pt will f/u PRN. Total time spent reviewing previous notes/results/external documents, preparing the chart, conducting the encounter with the patient and family, ordering tests/medications, and documenting the encounter was 35 mins. Ordered: E&M of New Patient Low 30-44 Min 14952 Urnls Dip Stick Auto w/o Microscopy POC [id number] Follow-up With When Contact Information MORENO MARTINEZ Only if needed [address] [place] [address] [facility] (1) Additional Instructions: Patient Education Erectile Dysfunction [...] Protein Urine Dipstick: Negative (08/03/21 09:55:00) Specific [place] Urine Dipstick: 1.020 (08/03/21 09:55:00) Urine Appearance Urine Dipstick: Clear (08/03/21 09:55:00) Urine Color Urine Dipstick: Yellow (08/03/21 09:55:00) Urobilinogen Urine Dipstick: 4 EU/dl (08/03/21 09:55:00) pH Urine Dipstick: 6.5 (08/03/21 09:55:00)[facility]Result Comment: Electronically Signed By: MORENO MARTINEZ PA-C\Date and Time Signed: 08/03/2210:12 [id number] Hospital Discharge instructions Patient Education 08/03/2021 11:10:10 [...] Follow these instructions at home: Medicines Take wini-oif-dltruhk and prescription medicines only as told by [...] 04/20/2001 Document Revised: 04/05/2018 Document Reviewed: 05/09/2017 [employer] Patient Education 2020 [facility]. Follow Up Care 07/14/2021 14:13:52 With:MORENO MARTINEZ Address: [address] [place] [address] Business (1) When: only if needed [facility] evaluation + Plan note No data available for this section [facility] evaluation noteNo assessment information available [facility] Work Phone: [facility] general Narrative - Reported* Type Description Date Medical History left distal fibula fracture Surgical History gastric bypass Hospitalization History see above [facility] Other Summary Purpose Family History No Family [...] section and content) DATE CREATED AUTHOR 08/05/2021 [facility] DATE CREATED AUTHOR AUTHOR'S ORGANIZ ATION 05/02/2022 [facility] DATE CREATED AUTHOR AUTHOR'S ORGANIZ ATION 08/16/2022 [facility] Care Teams (unrecognized sec tion and content) [...] BE BASED ON THE PRIMARY CLINICAL RECORDS. [employer] provides no warranty or guarantee of the accuracy or completeness of information in this document.
== END 2023-10-29 09:30 | disposition home or self-care (01) ==
LOC: RAD 09:30
PROVIDERS: PCP Family Medicine; Visit Provider Physician Assistant
DX: M25.562 Pain in left knee (principal); T15.00XA Foreign body in cornea, unspecified eye, initial encounter; T81.89XA Other complications of procedures, not elsewhere classified, initial encounter; S83.512A Sprain of anterior cruciate ligament of left knee, initial encounter
CPT/HCPCS: 70030; 71046; 73721

== ENCOUNTER 2024-02-22 00:27 | Emergency (ER) | payer OTHER, SELFPAY ==
[2024-02-22] VITALS (20 sets, daily range): BP systolic 101–150; BP diastolic 57–100; PULSE 76–107; TEMP 36.4; O2SAT 83–100; BMI 52.3
--- OUTSIDE RECORDS SUMMARY | 2024-02-22 00:40 | XMS_ITS | CCD ---
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 Name Role Phone Radhika De Jesus Primary Care Physician [phone] ODIN HOOKER Primary Care Unavailable KATHERINE LOMBARDI Consulting Unavailable KATHERINE LOMBARDI Admitting Unavailable KATHERINE LOMBARDI Attending Unavailable CANDACE BUSBY Consulting Unavailable DR RADHIKA DE JESUS Admitting Unavailable DR RADHIKA DE JESUS Attending Unavailable ODIN HOOKER Primary Care Unavailable DR RADHIKA DE JESUS Consulting Unavailable MD Radhika De Jesus Primary Care Provider DO Bryce Zhang Attending Provider [phone] Bryce Zhang Unavailable MD Radhika De Jesus Primary Care Provider DO Bryce Zhang Attending Provider MD Radhika De Jesus Primary Care Provider DO Benson Hooker Attending Provider Benson Hooker Admitting Unavailable Radhika De Jesus Primary Care Unavailable Benson Hooker Attending Unavailable Benson Hooker Attending Unavailable Radhika De Jesus Primary Care Unavailable Jaylan Hookerin A Admitting Unavailable Jaylan Hookerin A Attending Unavailable Radhika De Jesus Primary Care Unavailable Morro, Benson A Admitting Unavailable Jaylan Hookerin A Attending Unavailable Radhika De Jesus Primary Care Unavailable Morro Benson A Admitting Unavailable Unavailable Primary Care Provider Unavailabl e MICHAEL GUZMAN Attending Unavailable JESSICA LOONEY Attending Unavailable JAYLAN HOOKERIN Referring Unavailable MICHAEL GUZMAN Attending Unavailable JAYLAN HOOKERIN Referring Unavailable THIERNO CHAMBERLAIN Attending Unavailable JAYLAN HOOKERIN Referring Unavailable JESSICA LOONEY Attending Unavailable JAYLAN HOOKERIN Referring Unavailable DEREK FINCH Attending Unavailable JAYLAN HOOKERIN Referring Unavailable THIERNO CHAMBERLAIN Attending Unavailable MORRO, BENSON Referring Unavailable RUSTY MICHAEL Starla Attending Unavailable MORRO, BENSON Referring Unavailable JOSETTE, DEREK Attending Unavailable MORRO, BENSON Referring Unavailable BRAUSTIN, DEREK Attending Unavailable MORRO, BENSON Referring Unavailable BRINK, DEREK Attending Unavailable MORRO, BENSON Referring Unavailable BRAUSTIN, DEREK Attending Unavailable MORRO, BENSON Referring Unavailable BRAUSTIN, DEREK Attending Unavailable MORRO, BENSON Referring Unavailable KELBLEY, THIERNO Attending Unavailable MORRO, BENSON Referring Unavailable BRINK, DEREK Attending Unavailable MORRO, BENSON Referring Unavailable KELBLEY, THIERNO Attending Unavailable MORRO, BENSON Referring Unavailable KELBLEY, THIERNO Attending Unavailable MORRO, BENSON Referring Unavailable APRIL, THIERNO Attending Unavailable MORRO, BENSON Referring Unavailable BRAUSTIN, DEREK Attending Unavailable MORRO, BENSON Referring Unavailable Medications Current Medications Medication Drug Class(es) Dates Sig (Normalized) Sig (Original) acetaminophen 500 mg oral tablet (4 sources) Start: 01-10-2024 take 500 mg by mouth every six hours Acetaminophen Active 500 MG PO Q6H January 10, 2024 12:00am aspirin 81 mg chewable tablet (4 sources) Platelet Aggregation Inhibitor, Nonsteroidal Anti-inflammatory Drug Start: 01-10-2024 take 81 mg by mouth twice daily Aspirin Active 81 MG PO Twice daily January 10, 2024 12:00am Calcium (3 sources) Phosphate Binder, Calcium Calcium Active docusate sodium 100 mg oral capsule (4 sources) Start: 01-10-2024 take 1 capsule by mouth twice daily Docusate Sodium (Colace) 100 mg capsule Active 100 MG PO Twice daily 23 02January 10, 2024 12:00am doxycycline hyclate 100 mg oral capsule (1 source) Tetracycline-class Drug Start: 02-19-2024 take 100 mg by mouth twice daily Doxycycline Hyclate Active 100 MG PO Twice daily 14 February 19, 2024 12:00am Fish Oils (3 sources) Fish Oil Active Ibuprofen (6 sources) Nonsteroidal Anti-inflammatory Drug Ibuprofen Active meloxicam 15 mg oral tablet (4 sources) Nonsteroidal Anti-inflammatory Drug Start: 01-10-2024 take 15 mg by mouth once daily Meloxicam Active 15 MG PO daily 14 January 10, 2024 12:00am Multivitamin preparation (3 sources) Multivitamin Active oxyCODONE hydrochloride 5 mg oral tablet (4 sources) Opioid Agonist Start: 01-10-2024 take 5 mg by mouth every six hours Oxycodone Active 5 MG PO Q6H 20 5 January 10, 2024 phentermine hydrochloride 37.5 mg oral tablet (7 sources) Sympathomimetic Amine Anorectic Start: 12-24-2023 take 37.5 mg by mouth once daily Phentermine Active 37.5 MG PO Daily December 24, 2023 12:00am Start: 12-24-2023 Phentermine Ac tive MG PO December 24, 2023 12:00am vardenafil 20 mg oral tablet (1 source) Phosphodiesterase 5 Inhibitor Start: 08-03-2021 take 1 tablet by mouth once daily as needed vardenafil 20 mg Tab 20 mg = 1 tab(s), Oral, Daily, PRN for erectile dysfunction, Refills(s) 0 Start Date: 08/03/21 Status: Ordered Problems Active Problems Problem Classification Problem Date Documented Date Episodic/Chronic E Codes: Natural/environment (1 source) Other [...] encounter for closed fracture] Onset: 05-02-2022 Episodic Joint disorders and dislocations; trauma-related (20 sources) Arthropathy of left knee joint; Translations: [Unspecified tear of unspecified meniscus, current injury, left knee, initial encounter] Onset: 12-24-2023 11-19-2023 Episodic Other aftercare (3 sources) Surgical follow-up; Translations: [Encounter for removal of sutures] 01-22-2024 Episodic Other aftercare (3 sources) Encounter for removal of sutures; Translations: [Encounter for removal of sutures] 01-22-2024 Episodic Other connective tissue disease (1 source) Pain in left leg; Translations: [Pain in left leg] Onset: 2024 Episodic Other connective tissue disease (2 sources) Other symptoms and signs involving the musculoskeletal system; Translations: [Other musculoskeletal symptoms referable to limbs] 02-14-2024 Episodic Other male genital disorders (5 sources) Male erectile dysfunction, unspecified; Translations: [Erectile dysfunction] Onset: 07-05-2021 Chronic Other non-traumatic joint disorders (3 sources) Pain in left ankle and joints of left foot; Translations: [PAIN IN LEFT ANKLE] Onset: 04-29-2022 Episodic Other non-traumatic joint disorders (4 sources) Pain in left knee; Translations: [Pain in joint, lower leg] 02-06-2024 Episodic Other non-traumatic joint disorders (4 sources) Stiffness of left knee; Translations: [Stiffness of left knee, not elsewhere classified] 02-06-2024 Episodic Other nutritional; endocrine; and metabolic disorders (14 sources) Body mass index 40+ - severely obese; Translations: [Body mass index (BMI) 50.0-59.9, adult] 11-19-2023 Chronic Other nutritional; endocrine; and metabolic disorders (13 sources) Body mass index (BMI) 50.0-59.9, adult; Translations: [Body Mass Index 50.0-59.9, adult] 11-19-2023 Chronic Other nutritional; endocrine; and metabolic disorders (17 sources) Morbid (severe) obesity due to excess calories; Translations: [Morbid obesity] 11-19-2023 Chronic Residual codes; unclassified (4 sources) History of arthroscopy of knee joint; Translations: [Other specified postprocedural states] 01-10-2024 Episodic Residual codes; unclassified (5 sources) Other specified postprocedural states; Translations: [Other postprocedural status] Onset: 01-22-2024 01-22-2024 Episodic Sprains and strains (2 sources) Sprain of anterior cruciate ligament of left knee, initial encounter; Translations: [Complete tear, knee, anterior cruciate ligament] Onset: 12-24-2023 02-18-2024 Episodic Past or Other Problems Problem Classification Problem Date Documented Da te Episodic/Chronic Deficiency and other anemia (1 source) Anemia, unspecified; Translations: [ANEMIA UNSPECIFIED] Onset: 07-07-2021 Episodic Diabetes mellitus without complication (1 source) Other abnormal glucose; Translations: [OTHER ABNORMAL GLUCOSE] Onset: 07-07-2021 Episodic Results Test Name Value Interpretation Reference Range Facility XR knee LT 3V - NOT FOR ER U Janice 01-22-2024 XR knee LT 3V - NOT FOR ER USE [facility] [address] [place] [address] XRay Report Signed Patient: Pilo Napier MR#: [id number] 2 : 1995 Acct:[id number] Age/Sex: 29 / M ADM Date: 01/22/24 [facility] [place] Room: Type: [facility] Attending Dr: Benson Hooker DO Copies to: Benson Hooker DO Ordering Provider: Benson Hooker DO Date of Service: 01/22/24 XR/XR knee LT 3V - NOT FOR ER USE: Z98.890 - Other specified postprocedural states LEFT KNEE - 3 views COMPARISON: 12/24/2023 CLINICAL DATA: Follow-up after ACL repair Weightbearing AP, lateral and sunrise views were obtained. There is no acute fracture or dislocation. No patellar subluxation is noted. There are new postoperative changes of ACL repair. There is minor medial tibiofemoral joint compartment narrowing. There is no significant marginal spurring. There is a small knee effusion. XR/XR knee LT 3V - NOT FOR ER USE IMPRESSION: NEW POSTOPERATIVE CHANGES OF ACL REPAIR. NO OTHER ACUTE BONY FINDINGS. Impression dictated by: Candace Vargas M.D.01/22/2024 4:37 PM Dictation Location: [place] [address] Transcribed By: [facility] 01/22/24 1637 Dictated By: Candace Vargas MD 01/22/24 1635 Signed By: 01/22/24 1637 Normal [facility] ECG 12 lead ECGon 01-11-2024 ECG 12 lead ECG [facility] [place] [address] [place] [id number] Electrocardiograph Report Signed Patient: Pilo Napier MR#: [id number] 2 : 1995 Acct:[id number] Age/Sex: 29 / M ADM Date: 01/11/24 Loc: [place] Room: Type: [facility] Attending Dr: Benson Hooker DO Ordering Provider: Pedro Hobson MD Date of Service: 01/11/2410/29/639 ECG/ECG 12 lead ECG: preop Copies to: Test Reason : Blood Pressure : */* mmHG Vent. Rate : 61 BPM Atrial Rate : 61 BPM P-R Int : 190 ms QRS Dur : 104 ms QT Int : 434 ms P-R-T Axes : 13 13 59 degrees QTcB Int : 436 ms Normal sinus rhythm Incomplete right bundle branch block Borderline ECG No previous ECGs available Confirmed by Dee Burgos ([id number]) on 01/13/2024 3:37:45 PM Referred By: Electronically Signed By: Dee Burgos Transcribed By: MUS Signed By Dee Burgos DO 4 1537 Normal [facility] US venous duplex LE on US venous duplex [facility] [place] [address] Ultrasound Report Signed Patient: Pilo Napier MR#: [id number] 2 : 1995 Acct:[id number] Age/Sex: 29 / M ADM Date: 01/02/24 Loc: Room: Type: [facility] Attending Dr: Benson Hooker DO Ordering Provider: Benson Hooker DO Date of Service: 01/02/24 US/US venous duplex LT: M79.605 - Pain in left leg Copies to: Benson Hooker DO LEFT LOWER EXTREMITY VENOUS DUPLEX INDICATION: Left leg pain and tenderness. History of torn ACL with knee swelling. Unilateral left lower extremity venous duplex Doppler study was obtained utilizing B-mode, color- flow and spectral Doppler. FINDINGS: The left common femoral, femoral, and popliteal veins showed adequate compressibility, color-flow and augmentation. The left posterior tibial and peroneal veins were compressible, as well as proximal greater saphenous vein. The contralateral right common femoral vein was compressible with color-flow and augmentation. US/US venous duplex [facility] IMPRESSION: NO EVIDENCE OF DEEP VENOUS THROMBOSIS IN THE LEFT LOWER EXTREMITY. NO SUPERFICIAL THROMBOPHLEBITIS WAS NOTED. Impression dictated by: Macho Berger MD01/04/2024 11:28 AM Dictation Location: [place] [address] Tech: [employer] B[employer] Transcribed By: BEN 01/04/24 1128 Dictated By: Macho Berger MD 01/04/24 112 Signed By: 01/04/24 1128 Normal [facility] XR knee LT 3V - NOT FOR ER U Janice 12-24-2023 XR knee LT 3V - NOT FOR ER USE [facility] [address] [place] [id number] XRay Report Signed Patient: Pilo Napier MR#: [id number] 2 : 1995 Acct:[id number] Age/Sex: 28 / M ADM Date: 12/24/23 [place] [facility]: Type: [facility] Attending Dr: Benson Hooker DO Copies to: Benson Hooker DO Ordering Provider: Benson Hooker DO Date of Service: 12/24/23 XR/XR knee LT 3V - NOT FOR ER USE: S83.207A - Unspecified tear of unspecified meniscus, curr... 3 views left knee plain film COMPARISON: None HISTORY: Left ACL rupture. ACUTE FINDINGS: No acute findings DEGENERATIVE CHANGE: Unremarkable SOFT TISSUE FINDINGS: Diffuse JOINT EFFUSION: Moderate POSTOP CHANGES: None BONE MINERALIZATION: Adequate XR/XR knee LT 3V - NOT FOR ER USE IMPRESSION: Moderate joint effusion. Impression dictated by: Omari Stauffer M.D.12/24/2023 2:17 PM Dictation Location: [facility] Transcribed By: BEN 12/24/23 1417 Dictated By: Omari Stauffer DO 12/24/23 1417 Signed By: 12/24/23 1417 Normal [facility] XR ankle LT min 3V*on 2022 XR ankle LT min 3V* [facility] [employer] Other XR ankle LT min 3V* [facility] [employer] Other XR ankle LT min 3V* [address] [place] [address] [employer] Other XR ankle LT min 3V* [place] [id number] [place] [employer] Other XR ankle LT min 3V* XRay Report [place] [employer] Other XR ankle LT min 3V* Signed [employer] Other XR ankle LT min 3V* Patient: Pilo Napier MR#: [id number] [place] [employer] Other XR ankle LT min 3V* 2 [employer] Other XR ankle LT min 3V* : 1995 Acct:[id number] [employer] Other XR ankle LT min 3V* Age/Sex: 27 / M ADM Date: 08/02/22 [employer] Other XR ankle LT min 3V* [place] [facility] [place]: Type : [facility] [employer] Other XR ankle LT min 3V* Attending Dr: Bryce Zhang DO [employer] Other XR ankle LT min 3V* Copies to: Bryce Zhang DO [employer] Other XR ankle LT min 3V* Ordering Provider: Bryce Zhang DO [employer] Other XR ankle LT min 3V* Date of Service: 08/02/22 [employer] Other XR ankle LT min 3V* XR/XR ankle LT min 3V*: Closed fracture of distal end of left fibula, [employer] Other XR ankle LT min 3V* unspecified fr N [facility] [employer] Other XR ankle LT min 3V* LEFT ANKLE - 3 views [employer] Other XR ankle LT min 3V* CLINICAL HISTORY: Follow-up left distal fibular fracture [employer] Other XR ankle LT min 3V* COMPARISON: Left ankle 06/21/2022 [employer] Other XR ankle LT min 3V* FINDINGS: [employer] Other XR ankle LT min 3V* Soft tissue swelling is still present. Fracture is grossly unchanged alignment and healing. Ankle [employer] Other XR ankle LT min 3V* mortise appears intact. [employer] Other XR ankle LT min 3V* XR/XR ankle LT min 3V* [employer] Other XR ankle LT min 3V* IMPRESSION: [employer] Other XR ankle LT min 3V* DISTAL FIBULAR FRACTURE, GROSSLY UNCHANGED. [employer] Other XR ankle LT min 3V* Impression dictated by: Kalia Luke Jr., D.O.08/02/2022 10:50 AM [employer] Other XR ankle LT min 3V* Dictation Location: [facility] [employer] Other XR ankle LT min 3V* Transcribed By: PWS 08/02/22 1050 [employer] Other XR ankle LT min 3V* Dictated By: Kalia Luke Jr, DO 08/02/22 1049 [employer] Other XR ankle LT min 3V* Signed By: [employer] Other XR ankle LT min 3V* 08/02/22 1050 No rt [employer] Other XR ankle LT min 3V*on 2022 XR ankle LT min 3V* [facility] [employer] Other XR ankle LT min 3V* [facility] [place] [employer] Other XR ankle LT min 3V* [address] [place] [address] [employer] Other XR ankle LT min 3V* [place] [address] [employer] Other XR ankle LT min 3V* XRay Report [employer] Other XR ankle LT min 3V* Signed [employer] Other XR ankle LT min 3V* Patient: Pilo Napier MR#: [id number] [place] [employer] Other XR ankle LT min 3V* 2 [employer] Other XR ankle LT min 3V* : 1995 Acct:[id number] [employer] Other XR ankle LT min 3V* Age/Sex: 27 / M ADM Date: 06/21/22 [employer] Other XR ankle LT min 3V* [place] [facility] [place]: Type : [facility] [employer] Other XR ankle LT min 3V* Attending Dr: Bryce Zhang DO [employer] Other XR ankle LT min 3V* Copies to: Bryce Zhang DO [employer] Other XR ankle LT min 3V* Ordering Provider: Bryce Zhang DO [employer] Other XR ankle LT min 3V* Date of Service: 06/21/22 [employer] Other XR ankle LT min 3V* XR/XR ankle LT min 3V*: Closed fracture of distal end of left fibula, [employer] Other XR ankle LT min 3V* unspecified fr N [facility] [employer] Other XR ankle LT min 3V* LEFT ANKLE - 3 views [employer] Other XR ankle LT min 3V* CLINICAL HISTORY: Follow-up left distal fibular fracture. [employer] Other XR ankle LT min 3V* COMPARISON: Left ankle 05/17/2022 [employer] Other XR ankle LT min 3V* FINDINGS: [employer] Other XR ankle LT min 3V* Soft tissue swelling is noted. Interval callus formation involving the distal fibular fracture [employer] Other XR ankle LT min 3V* suggestive of healin g response. No change in alignment. Ankle mortise appears intact. [employer] Other XR ankle LT min 3V* XR/XR ankle LT min 3V* [employer] Other XR ankle LT min 3V* IMPRESSION: [place] [employer] Other XR ankle LT min 3V* HEALING DISTAL FIBULAR FRACTURE. [employer] Other XR ankle LT min 3V* Impression dictated by: Kalia Luke Jr., D.OXiomara06/21/2022 10:09 AM [employer] Other XR ankle LT min 3V* Dictation Location: [place] [address] [employer] Other XR ankle LT min 3V* Transcribed By: PWS 06/21/22 1009 [employer] Other XR ankle LT min 3V* Dictated By: Kalia Luke Jr, DO 06/21/22 1009 [employer] Other XR ankle LT min 3V* Signed By: [employer] Other XR ankle LT min 3V* 06/21/22 1009 No rt [employer] Other XR ankle LT min 3V*on 2022 XR ankle LT min 3V* [facility] [employer] Other XR ankle LT min 3V* [facility] [place] [employer] Other XR ankle LT min 3V* [address] [place] [address] [employer] Other XR ankle LT min 3V* [place] [address] [employer] Other XR ankle LT min 3V* XRay Report [employer] Other XR ankle LT min 3V* Signed [employer] Other XR ankle LT min 3V* Patient: Pilo Napier MR#: [id number] [employer] Other XR ankle LT min 3V* 2 [employer] Other XR ankle LT min 3V* : 1995 Acct:[id number] [employer] Other XR ankle LT min 3V* Age/Sex: 27 / M ADM Date: 05/17/22 [employer] Other XR ankle LT min 3V* [place] [facility]: Type : [facility] [employer] Other XR ankle LT min 3V* Attending Dr: Bryce Zhang DO [employer] Other XR ankle LT min 3V* Copies to: Bryce Zhang DO [employer] Other XR ankle LT min 3V* Ordering Provider: Bryce Zhang DO [employer] Other XR ankle LT min 3V* Date of Service: 05/17/22 [employer] Other XR ankle LT min 3V* XR/XR ankle LT min 3V*: Closed fracture of distal end of left fibula, [employer] Other XR ankle LT min 3V* unspecified fr N [employer] Other XR ankle LT min 3V* LEFT ANKLE - 3 views [employer] Other XR ankle LT min 3V* CLINICAL HISTORY: Follow-up post fracture distal end left fibula. [employer] Other XR ankle LT min 3V* COMPARISON: Left ankle 04/29/2022 [employer] Other XR ankle LT min 3V* FINDINGS: [employer] Other XR ankle LT min 3V* Soft tissue swelling is noted. Fracture involving the distal fibula grossly unchanged in alignment [employer] Other XR ankle LT min 3V* with fracture line less conspicuous suggestive of healing response. Ankle mortise appears intact. [employer] Other XR ankle LT min 3V* XR/XR ankle LT min 3V* [employer] Other XR ankle LT min 3V* IMPRESSION: [employer] Other XR ankle LT min 3V* HEALING DISTAL FIBULAR FRACTURE. [employer] Other XR ankle LT min 3V* Impression dictated by: Kalia Luke Jr., D.O.05/17/2022 2:58 PM [employer] Other XR ankle LT min 3V* Dictation Location: [place] [address] [employer] Other XR ankle LT min 3V* Transcribed By: PWS 05/17/22 1458 [employer] Other XR ankle LT min 3V* Dictated By: Kalia Luke Jr, DO 05/17/22 1457 [employer] Other XR ankle LT min 3V* Signed By: [employer] Other XR ankle LT min 3V* 05/17/22 1458 No rt [employer] Other XR TIB_FIB LT 2Von 2 XR [...] Nondisplaced lateral malleolar fracture. Electronically authenticated by: CANDACEANUJ BUSBY Date: 2022-04-29 11:37 Normal [facility] Ambulatory Visit Summaryon 0 08-03-2021 Ambulatory Visit Summary PILO NAPIER :1995 Visit Date:08/03/2021 Ambulatory Visit Instructions Your Diagnosis Erectile dysfunction Tests Performed Urnls Dip Stick Auto w/o Microscopy POC 69695 Your Care Team Attending Physician - JUAN BARBER, MORENO Harmon Primary Care Physician - Radhika De Jesus MD This Is Your Medications List vardenafil [...] Urnls Dip Stick Auto w/o Microscopy POC 86941 (08/03/2021) Bilirubin Urine Dipstick - Negative Blood Urine Dipstick - Negative Glucose Urine Dipstick - Negative Ketones Urine Dipstick - Negative Leukocytes Urine Dipstick - Negative Nitrite Urine Dipstick - Negative Protein Urine Dipstick - Negative Specific [place] Urine Dipstick - 1.020 Urine Appearance Urine Dipstick - Clear Urine Color Urine Dipstick - Yellow Urobilinogen Urine Dipstick - 4 EU/dl pH Urine Dipstick - 6.5 Allergies No active allergies Normal [facility] Lab Reportson 08-03-2021 Lab Reports [id number]. [id number]:[address] [facility] Patient Educationon 08-04-19 22 Patient Education [...] these instructions at home: Medicines ? Take qsjz-xms-utxoraw and prescription medicines only as told by [...] of your (more content not included)... Normal [facility] TESTOSTERONE, FREE,DIRECT, T Álvaron 07-07-2021 Free Testosterone(Direct) 10.5 pg/mL Normal 9.3-26.5 [facility] Comment on above: Result Comment: Perf ormed at: BN Performed By: #### T ESTTORIE #### [facility] [address] [place] [address] Dr. Leonor Galicia Testosterone [Mass/Vol] 630 ng/dL Normal 264-916 [facility] Comment on above: Result Comment: Adul t male reference interval is based on a population of healthy nonobese males (BMI <30) between 19 and 39 years old. Jamel, et.al. JCEM 2017,102;9881-4349. PMID: [id number]. Performed at: CB Performed By: #### T ESTFRD #### [facility] [address] [place] [address] Dr. Leonor Galicia INSULINon 07-06-2021 Insulin 16.1 uIU/mL Normal 2.6-24.9 [facility] Comment on above: Performed By: #### I NSULIN #### [facility] [address] [place] [address] Dr. Leonor Galicia CBC AUTO DIFFon 07-05-2021 BASO # 0.1 103/ul Normal 0.0-0.1 [facility] Comment on above: Performed By: #### C BC #### [facility] [address] [place] [address] Dr. Leonor Galicia Basophils/100 WBC (Bld) 0.7 % Normal 0.2-2.0 [facility] [facility] Comment on above: Performed By: #### C BC #### [facility] [address] [place] [address] Dr. Leonor Galicia EO # 0.4 103/ul Normal 0.0-0.7 [facility] Comment on above: Performed By: #### C BC #### [facility] [address] [place] [address] Dr. Leonor Galicia Eosinophils/100 WBC (Bld) 6.3 % Normal 0.9-7.0 [facility] Comment on above: Performed By: #### C BC #### [facility] [address] [place] [address] Dr. Leonor Galicia Erythrocyte distribution width (RBC) [Ratio] 13.8 % Normal 11.0-15.0 [facility] Comment on above: Performed By: #### C BC #### [facility] [address] [place] [address] Dr. Leonor Galicia Hematocrit (Bld) [Volume fraction] 44.9 % Normal 42.0-54.0 [facility] Comment on above: Performed By: #### C BC #### [facility] [address] [place] [address] Dr. Leonor Galicia Hemoglobin (Bld) [Mass/Vol] 15.0 g/dL Normal 14.0-18.0 [facility] Comment on above: Performed By: #### C BC #### [facility] [address] [place] [address] Dr. Leonor Galicia IG # 0.02 10e3/ul Normal 0.00-0.03 [facility] Comment on above: Performed By: #### C BC #### [facility] [address] [place] [address] Dr. Leonor Galicia IG % 0.3 % Normal 0.0-0.5 [facility] Comment on above: Performed By: #### C BC #### [facility] [address] [place] [address] Dr. Leonor Galicia LYMPH # 2.2 103/ul Normal 1.2-3.8 [facility] Comment on above: Performed By: #### C BC #### [facility] [address] [place] [address] Dr. Leonor Galicia Lymphocytes/100 WBC (Bld) 31.9 % Normal 20.5-60.0 [facility] Comment on above: Performed By: #### C BC #### [facility] [address] [place] [address] Dr. Leonor Galicia MANUAL DIFF REQ NO Normal [facility] Comment on above: Performed By: #### C BC #### [facility] [address] [place] [address] Dr. Leonor Galicia MCH (RBC) [Entitic mass] 30.8 pg Normal 25.9-34.0 [facility] Comment on above: Performed By: #### C BC #### [facility] [address] [address] [address] Leonor Galicia MCHC (RBC) [Mass/Vol] 33.4 g/dL Normal 29.9-35.2 [facility] Comment on above: Performed By: #### C BC #### [facility] [address] [address] [address] Leonor Galicia MCV (RBC) [Entitic vol] 92.2 fL Normal 80.0-94.0 [facility] Comment on above: Performed By: #### C BC #### [facility] [address] [address] [address] Leonor Galicia MONO # 0.7 103/ul Normal 0.3-0.8 [facility] Comment on above: Performed By: #### C BC #### [facility] [address] [place] [address] Dr. Leonor Galicia Monocytes/100 WBC (Bld) 9.5 % Normal 1.7-12.0 [facility] Comment on above: Performed By: #### C BC #### [facility] [address] [place] [address] Dr. Leonor Galicia NEUT # 3.6 103/ul Normal 1.4-6.5 [facility] Comment on above: Performed By: #### C BC #### [facility] [address] [place] [address] Dr. Leonor Galicia Neutrophils/100 WBC (Bld) 51.3 % Normal 43.0-75.0 [facility] Comment on above: Performed By: #### C BC #### [facility] [address] [address] [address] Leonor Galicia Platelet mean volume (Bld) [Entitic vol] 12.9 fL Normal 9.5-13.5 [facility] Comment on above: Performed By: #### C BC #### [facility] [address] [address] [address] Leonor Galicia PLT 148 103/ul Critically low 150-450 [facility] Comment on above: Performed By: #### C BC #### [facility] [address] [address] [address] Leonor Galicia RBC 4.87 106/ul Normal 4.70-6.10 [facility] Comment on above: Performed By: #### C BC #### [facility] [address] [place] [address] Dr. Leonor Galicia WBC 6.9 103/ul Normal 4.0-11.0 [facility] Comment on above: Performed By: #### C BC #### [facility] [address] [place] [address] Dr. Leonor Galicia FREE THYROXINE INDEX T7on FTI 3.04 Normal [facility] Comment on above: Performed By: #### L IPID, CMP, TSH, T7 #### [facility] [address] [place] [address] Dr. Leonor Galicia T3U 38.0 % Normal 23.5-40.5 [facility] Comment on above: Performed By: #### L IPID, CMP, TSH, T7 #### [facility] [address] [place] [address] Dr. Leonor Galicia T4 [Mass/Vol] 8.00 ug/dL Normal 5.53-11.00 [facility] Comment on above: Performed By: #### L IPID, CMP, TSH, T7 #### [facility] [address] [place] [address] Dr. Leonor Galicia GLYCOHEMOGLOBIN A1Con 2021 ADA RECOMMENDATION ADA THERAPEUTIC TARGET 6.0 - 7.0 ACTION SUGGESTED > 7.0 Normal [facility] Comment on above: Performed By: #### A 1C #### [facility] [address] [place] [address] Dr. Leonor Galicia Glucose [Mass/Vol] 97 mg/dL Normal [facility] Comment on above: Performed By: #### A 1C #### [facility] [address] [place] [address] Dr. Leonor Galicia HbA1c (Bld) [Mass fraction] 5.0 % Normal <=6.0 [facility] Comment on above: Performed By: #### A 1C #### [facility] [address] [address] [address] Leonor Galicia IRONon 07-05-2021 Iron [Mass/Vol] 96.0 ug/dL Normal 49.0-181.0 [facility] Comment on above: Performed By: #### L IPID, CMP, TSH, T7 #### [facility] [address] [address] [address] Leonor Galicia LIPID PROFILEon 07-05-2021 CHOL-HDL RATIO NORM SEE BELOW Normal [facility] Comment on above: Result Comment: 3.3 - 4.4 LOW RISK 4.4 - 7.1 AVERAGE RISK 7.1 - 11.0 MODERATE RISK >11.0 HIGH RISK Performed By: #### L IPID, CMP, TSH, T7 #### [facility] [address] [address] [address] Leonor Galicia Cholesterol [Mass/Vol] 134 mg/dL Normal <=200 [facility] Comment on above: Performed By: #### L IPID, CMP, TSH, T7 #### [facility] [address] [address] [address] Leonor Galicia Cholesterol in HDL [Mass/Vol] 50 mg/dL Normal [facility] Comment on above: Performed By: #### L IPID, CMP, TSH, T7 #### [facility] [address] [address] [address] Leonor Galicia Cholesterol in LDL [Mass/Vol] 67.6 mg/dL Normal [facility] Comment on above: Performed By: #### L IPID, CMP, TSH, T7 #### [facility] [address] [address] [address] Leonor Galicia Cholesterol.total/Ch olesterol in HDL [Mass ratio] 2.7 {ratio} Normal [facility] Comment on above: Performed By: #### L IPID, CMP, TSH, T7 #### [facility] [address] [address] [address] Leonor Galicia HDL NORMAL > or = 60 mg/dl - LO W CARDIOVASCULAR RISK <40 mg/dl - HIGH CARDIOVASCULAR RISK Normal [facility] Comment on above: Performed By: #### L IPID, CMP, TSH, T7 #### [facility] [address] [address] [address] Leonor Galicia LDL CALC NORMAL SEE BELOW Normal [facility] Comment on above: Result Comment: <100 mg/dl OPTIMAL 100 - 129 mg/dl NEAR OR ABOVE OPTIMAL 130 - 159 mg/dl BORDERLINE HIGH 160 - 189 mg/dl HIGH >190 mg/dl VERY HIGH Performed By: #### L IPID, CMP, TSH, T7 #### [facility] [address] [address] [address] Leonor Galicia Triglyceride [Mass/Vol] 82 mg/dL Normal <=150 [facility] Comment on above: Performed By: #### L IPID, CMP, TSH, T7 #### [facility] [address] [address] [address] Leonor Galicia VLDL CALC 16.4 mg/dL Normal [facility] Comment on above: Performed By: #### L IPID, CMP, TSH, T7 #### [facility] [address] [address] [address] Leonor Galicia PROF 14(COMP METB)on 022 Albumin [Mass/Vol] 3.5 g/dL Normal 3.5-5.0 [facility] Comment on above: Performed By: #### L IPID, CMP, TSH, T7 #### [facility] [address] [address] [address] Leonor Galicia Albumin/Globulin [Mass ratio] 0.9 {ratio} Normal [facility] Comment on above: Performed By: #### L IPID, CMP, TSH, T7 #### [facility] [address] [address] [address] Leonor Galicia ALP [Catalytic activity/Vol] 89 U/L Normal 38-126 [facility] Comment on above: Performed By: #### L IPID, CMP, TSH, T7 #### [facility] [address] [address] [address] Leonor Galicia ALT [Catalytic activity/Vol] 28 U/L Normal 21-72 [facility] Comment on above: Performed By: #### L IPID, CMP, TSH, T7 #### [facility] [address] [address] [address] Leonor Galicia Anion gap [Moles/Vol] 7.3 mmol/L Normal [facility] Comment on above: Performed By: #### L IPID, CMP, TSH, T7 #### [facility] [address] [address] [address] Leonor Galicia AST [Catalytic activity/Vol] 18 U/L Normal 17-59 [facility] Comment on above: Performed By: #### L IPID, CMP, TSH, T7 #### [facility] [address] [place] [address] Dr. Leonor Galicia Bilirubin [Mass/Vol] 1.1 mg/dL Normal 0.2-1.3 [facility] Comment on above: Performed By: #### L IPID, CMP, TSH, T7 #### [facility] [address] [address] [address] Leonor Galicia Calcium [Mass/Vol] 9.2 mg/dL Normal 8.4-10.2 [facility] Comment on above: Performed By: #### L IPID, CMP, TSH, T7 #### [facility] [address] [place] [address] Dr. Leonor Galicia Chloride [Moles/Vol] 107 mmol/L Normal 98-107 [facility] Comment on above: Performed By: #### L IPID, CMP, TSH, T7 #### [facility] [address] [place] [address] Dr. Leonor Galicia CO2 [Moles/Vol] 28.9 mmol/L Normal 22.0-30.0 [facility] Comment on above: Performed By: #### L IPID, CMP, TSH, T7 #### [facility] [address] [place] [address] Dr. Leonor Galicia Creatinine [Mass/Vol] 0.74 mg/dL Normal 0.66-1.25 [facility] Comment on above: Performed By: #### L IPID, CMP, TSH, T7 #### [facility] [address] [address] [address] Leonor Galicia EGFR-AF [place]THER[place]ISH >156 Normal >=60 [facility] Comment on above: Performed By: #### L IPID, CMP, TSH, T7 #### [facility] [address] [address] [address] Leonor Galicia EGFR-NON AF [place] >129 Normal >=60 [facility] Comment on above: Performed By: #### L IPID, CMP, TSH, T7 #### [facility] [address] [address] [address] Leonor Galicia Globulin (S) [Mass/Vol] 3.7 g/dL Normal [facility] Comment on above: Performed By: #### L IPID, CMP, TSH, T7 #### [facility] [address] [address] [address] Leonor Galicia Glucose [Mass/Vol] 83 mg/dL Normal 74-106 [facility] Comment on above: Performed By: #### L IPID, CMP, TSH, T7 #### [facility] [address] [address] [address] Leonor Galicia Potassium [Moles/Vol] 4.2 mmol/L Normal 3.4-5.0 [facility] Comment on above: Performed By: #### L IPID, CMP, TSH, T7 #### [facility] [address] [address] [address] Leonor Galicia Protein [Mass/Vol] 7.2 g/dL Normal 6.1-8.2 [facility] Comment on above: Performed By: #### L IPID, CMP, TSH, T7 #### [facility] [address] [address] [address] Leonor Galicia Sodium [Moles/Vol] 139 mmol/L Normal 137-145 [facility] Comment on above: Performed By: #### L IPID, CMP, TSH, T7 #### [facility] [address] [address] [address] Leonor Galicia Urea nitrogen [Mass/Vol] 12.0 mg/dL Normal 9.0-20.0 [facility] Comment on above: Performed By: #### L IPID, CMP, TSH, T7 #### [facility] [address] [address] [address] Leonor Galicia Urea nitrogen/Creatinine [Mass ratio] 16.2 mg/mg Normal [facility] Comment on above: Performed By: #### L IPID, CMP, TSH, T7 #### [facility] [address] [address] [address] Leonor Galicia TSHon 07-05-2021 TSH 1.870 uIU/mL Normal 0.470-4.680 [facility] Comment on above: Performed By: #### L IPID, CMP, TSH, T7 #### [facility] [address] [place] [address] Dr. Leonor Galicia TSH RANGE SEE BELOW Normal [facility] Comment on above: Result Comment: <0.3 4 UIU/ml HYPERTHYROID 0.34-5.60 UIU/ml EUTHYROID >5.60 UIU/ml HYPOTHYROID Performed By: #### L IPID, CMP, TSH, T7 #### [facility] [address] [address] [address] Leonor Galicia Vital Signs Date Time Vital Sign Value Performing Clinician Facility 01-11-2024 14:10-0400 Diastolic blood pressure 82 mm[Hg] MD Radhika De Jesus Work Phone: [facility] 01-11-2024 14:10-0400 Heart rate 86 /min MD Radhika De Jesus Work Phone: [facility] 01-11-2024 14:10-0400 Respiratory rate 16 /min MD Radhika De Jesus Work Phone: [facility] 01-11-2024 14:10-0400 SaO2% (BldA) [Mass fraction] 94 % MD Radhika De Jesus Work Phone: [facility] 01-11-2024 14:10-0400 Systolic blood pressure 158 mm[Hg] MD Radhika De Jesus Work Phone: [facility] 01-11-2024 12:50-0400 Body temperature 98 [degF] MD Radhika De Jesus Work Phone: [facility] 01-11-2024 12:25-0400 Inhaled oxygen flow rate 8 L/min MD Radhika De Jesus Work Phone: [facility] 01-11-2024 06:29-0400 Body height 193.04 cm MD aRdhika De Jesus Work Phone: [facility] 01-11-2024 06:29-0400 Body weight 195.04 kg MD Radhika De Jesus Work Phone: [facility] 12-24-2023 09:16-0400 Body height 193.04 cm MD Radhika De Jesus Work Phone: [facility] 12-24-2023 09:16-0400 Body mass index (BMI) [Ratio] 53.5 kg/m2 MD Radhika De Jesus Work Phone: [facility] 12-24-2023 09:16-0400 Body weight 199.58 kg MD Radhika De Jesus Work Phone: [facility] 11-19-2023 09:42-0400 Body height 193.04 cm [facility] 11-19-2023 09:42-0400 Body mass index (BMI) [Ratio] 54.8 kg/m2 [facility] 11-19-2023 09:42-0400 Body weight 204.11 kg [facility] 06-21-2022 09:15-0500 Body height 193.04 cm Bryce Zhang Other [employer] Other 06-21-2022 09:15-0500 Body mass index (BMI) [Ratio] 46.25 kg/m2 Bryce Zhang Other [employer] Other 06-21-2022 09:15-0500 Body weight 172.37 kg Bryce Zhang Other [employer] Other 05-03-2022 09:00-0500 Body height 193.04 cm Bryce Zhang Other [facility] Other 05-03-2022 09:00-0500 Body mass index (BMI) [Ratio] 42.6 kg/m2 Bryce Zhang Other [employer] Other 05-03-2022 09:00-0500 Body weight 158.76 kg Bryce Zhang Other [facility] [employer] Other 08-03-2021 09:56-0400 Blood Pressure Location [facility]-03-2021 09:56-0400 Diastolic blood pressure 75 mm[Hg] MORENO CASERY [facility] 08-03-2021 09:56-0400 Heart rate 69 /min MORENO JUAN [facility] 08-03-2021 09:56-0400 Respiratory rate 16 /min [facility] JUAN [facility] 08-03-2021 09:56-0400 Systolic blood pressure 132 mm[Hg] MORENO JUAN [facility] Encounters Encounter Date Encounter Type Care Provider Facility Start: 02-19-2024 End: 02-19-2024 ambulatory MD Radhika De Jesus Work Phone: [facility] Work Phone: Start: 02-19-2024 End: 02-19-2024 Patient encounter procedure MD Radhika De Jesus Work Phone: [facility] Work Phone: Start: 02-18-2024 End: 02-18-2024 Bamboo flowsheet Derek Finch [facility] [facility] [facility] Start: 02-18-2024 End: 02-18-2024 Bamboo flowsheet Derek Finch [facility] [facility] Start: 02-18-2024 End: 02-18-2024 ambulatory DEREK FINCH [facility] Comment on above: Acute pain of left k nee (Primary Dx); Knee stiffness, left; S/P arthroscopic reconstruction of ACL using quadriceps tendon autograft; Weakness of left leg; Tear of anterior cruciate ligament, complete, left, subsequent encounter Start: 02-14-2024 End: 02-14-2024 ambulatory Thierno Kelbley [facility] [facility] [facility] Comment on above: Acute pain of left k nee (Primary Dx); Knee stiffness, left; S/P arthroscopic reconstruction of ACL using quadriceps tendon autograft; Weakness of left leg Start: 02-14-2024 End: 02-14-2024 Bamboo flowsheet Thierno Kelbley [facility] [facility] Start: 02-14-2024 End: 02-14-2024 Bamboo flowsheet Thierno Kelbley [facility] [facility] [facility] Start: 02-13-2024 End: 02-13-2024 Bamboo flowsheet Thierno Kelbley [facility] [facility] Start: 02-13-2024 End: 02-13-2024 Bamboo flowsheet Thierno Kelbley [facility] [facility] Start: 02-13-2024 End: 02-13-2024 ambulatory Thierno Kelbley [facility] [facility] [facility] Comment on above: Acute pain of left k nee (Primary Dx); Knee stiffness, left; S/P arthroscopic reconstruction of ACL using quadriceps tendon autograft Start: 02-06-2024 End: 02-06-2024 Bamboo flowsheet Thierno Kelbley [facility] [facility] [facility] Start: 02-06-2024 End: 02-06-2024 Bamboo flowsheet Thierno Kelbley [facility] [facility] Start: 02-06-2024 End: 02-06-2024 ambulatory Thierno Chamberlain [facility] Comment on above: Acute pain of left k nee (Primary Dx); Knee stiffness, left; S/P arthroscopic reconstruction of ACL using quadriceps tendon autograft Start: 02-04-2024 End: 02-04-2024 ambulatory DEREK FINCH Not Available Start: 02-01-2024 End: 02-01-2024 ambulatory THIERNO CHAMBERLAIN Not Available Start: 01-29-2024 End: 01-29-2024 ambulatory DEREK BRINK Not Available Start: 01-25-2024 End: 01-25-2024 ambulatory DEREK BRINK Not Available Start: 01-23-2024 End: 01-23-2024 ambulatory DEREK BRINK Not Available Start: 01-22-2024 End: 01-22-2024 ambulatory MD Radhika De Jesus Work Phone: [facility] Work Phone: Start: 01-22-2024 End: 01-22-2024 Patient encounter procedure MD Radhika De Jesus Work Phone: [facility] Work Phone: Start: 01-21-2024 End: 01-21-2024 ambulatory DEREK BRINK Not Available Start: 01-17-2024 End: 01-17-2024 ambulatory DEREK BRINK Not Available Start: 01-15-2024 End: 01-15-2024 ambulatory MICHAEL GUZMAN Not Available Start: 01-11-2024 Non-patient / Non-visit MD Fei De Jesus Work Phone: [facility] Work Phone: Start: 01-11-2024 End: 01-11-2024 Admission to same day surgery center MD Radhika De Jesus Work Phone: [facility] [place] Start: 01-11-2024 End: 01-11-2024 ambulatory MD Radhika De Jesus Work Phone: [facility] Work Phone: Start: 2024 End: 2024 Patient encounter procedure MD Radhika De Jesus Work Phone: [facility] [place] Work Phone: Start: 2024 End: 2024 ambulatory MD Radhika De Jesus Work Phone: [facility] Work Phone: Start: 12-24-2023 End: 12-24-2023 ambulatory MD Radhika De Jesus Work Phone: [facility] Work Phone: Start: 12-24-2023 End: 12-24-2023 Patient encounter procedure MD Radhika De Jesus Work Phone: [facility] Work Phone: Start: 12-24-2023 End: 12-24-2023 Patient encounter procedure MD Radhika De Jesus Work Phone: [facility] Start: 12-24-2023 End: 12-24-2023 ambulatory MD Radhika De Jesus Work Phone: [facility] Work Phone: Start: 12-19-2023 End: 12-19-2023 ambulatory THIERNO CHAMBERLAIN Not Available Start: 12-17-2023 End: 12-17-2023 ambulatory DEREK FINCH Not Available Start: 12-14-2023 End: 12-14-2023 ambulatory JESSICA LOONEY Not Available Start: 12-12-2023 End: 12-12-2023 ambulatory THIERNO CHAMBERLAIN Not Available Start: 12-10-2023 End: 12-10-2023 ambulatory MICHAEL GUZMAN Not Available Start: 12-07-2023 End: 12-07-2023 ambulatory JESSICA LOONEY Not Available Start: 12-05-2023 End: 12-05-2023 ambulatory MICHAEL GUZMAN Not Available Start: 11-19-2023 End: 11-19-2023 ambulatory [facility] Work Phone: Start: 11-19-2023 End: 11-19-2023 Patient encounter procedure [facility] Work Phone: Start: 01-12-2023 End: 01-12-2023 ambulatory Bryce Zhang Other [employer] Other Start: 01-12-2023 Office outpatient vi sit 15 minutes Bryce Zhang [facility] Start: 10-06-2022 End: 10-06-2022 ambulatory Bryce Zhang Other [employer] Other Start: 10-06-2022 Postop follow up vis it related to original px Bryce Zhang [facility] Start: 08-02-2022 Office outpatient vi sit 15 minutes Bryce Zhang [facility] Start: 08-02-2022 End: 08-02-2022 ambulatory MD Radhika De Jesus Work Phone: [employer] Other Start: 08-02-2022 End: 08-02-2022 Patient encounter procedure MD Radhika De Jesus Work Phone: [facility] Start: 06-21-2022 Postop follow up vis it related to original px Bryce Zhang [facility] Start: 06-21-2022 End: 06-21-2022 ambulatory MD Radhika De Jesus Work Phone: [facility] Work Phone: Start: 06-21-2022 End: 06-21-2022 Patient encounter procedure MD Radhika De Jesus Work Phone: [facility] Start: 05-17-2022 Postop follow up vis it related to original px Bryce Leatha [facility] Start: 05-17-2022 End: 05-17-2022 ambulatory MD Radhika De Jesus Work Phone: [facility] Work Phone: Start: 05-17-2022 End: 05-17-2022 Patient encounter procedure MD Radhika De Jesus Work Phone: [facility] Start: 05-03-2022 ([facility]) [employer] Bryce Leatha [facility] Start: 05-03-2022 End: 05-03-2022 ambulatory Bryce Gonzalezley Other [facility] [employer] Other Start: 04-29-2022 End: 04-29-2022 ambulatory ODIN HOOKER Facility:[facility] Start: 08-03-2021 End: 08-03-2021 Patient encounter procedure MORENO MARTINEZ [facility] Start: 07-05-2021 End: 07-06-[address] RADHIKA DE JESUS Facility:[facility] Procedures Date Procedure Procedure Detail Performing Clinician Start: 01-22-2024 X-ray of left knee MD Radhika De Jesus Work Phone: Start: 01-11-2024 Arthroscopy of knee MD Radhika De Jesus Work Phone: Start: 2024 Duplex scan of lower limb veins MD Radhika De Jesus Work Phone: Start: 12-24-2023 X-ray of left knee MD Radhika De Jesus Work Phone: Start: 08-02-2022 X-ray of left ankle MD Radhika De Jesus Work Phone: Start: 06-21-2022 X-ray of left ankle MD Radhika De Jesus Work Phone: Start: 05-17-2022 X-ray of left ankle MD Radhika De Jesus Work Phone: Start: 02-11-2019 Bypass of stomach MORENO MARTINEZ Start: 05-07-2008 Heart structure (body structure) MORENO MARTINEZ History of reconstru ction of anterior cruciate ligament tear S/P arthroscopic reconstruction of ACL using quadriceps tendon autograft Thierno Chamberlain NEON SIGN MECHANIC History of reconstru ction of anterior cruciate ligament tear S/P arthroscopic reconstruction of ACL using quadriceps tendon autograft Thierno Chamberlain NEON SIGN MECHANIC History of reconstru ction of anterior cruciate ligament tear S/P arthroscopic reconstruction of ACL using quadriceps tendon autograft Thierno Chamberlain NEON SIGN MECHANIC History of reconstru ction of anterior cruciate ligament tear S/P arthroscopic reconstruction of ACL using quadriceps tendon autograft Derek Finch NEON SIGN MECHANIC Plan of Treatment Date Care Activity Detail Author Start: 02-21-2024 End: 02-21-2024 ambulatory 02/21/2024 12:00 PM EDT Treatment [facility] [address] [place] [address] Thierno Chamberlain, NEON SIGN MECHANIC [facility] Start: 02-20-2024 End: 02-20-2024 ambulatory 02/20/2024 12:00 PM EDT Treatment [facility] [address] [place] [address] Michael Guzman, PT [address] [place] [address] [facility] Start: 02-18-2024 End: 02-18-2024 ambulatory 02/18/2024 8:00 AM EDT Treatment [facility] [address] [place] [address] Derek Finch NEON SIGN MECHANIC [facility] Start: 02-14-2024 End: 02-14-2024 ambulatory 02/14/2024 2:00 PM EDT Treatment [facility] [address] [place] [address] Thierno Chamberlain, NEON SIGN MECHANIC [facility] Start: 02-12-2024 End: 02-12-2024 ambulatory 02/12/2024 3:00 PM EDT Treatment [facility] [address] [place] [address] Thierno Chamberlain, NEON SIGN MECHANIC [facility] Start: 02-08-2024 End: 02-08-2024 ambulatory 02/08/2024 2:00 PM EDT Treatment [facility] [address] [place] [address] Thierno Chamberlain, NEON SIGN MECHANIC [facility] Start: 02-06-2024 End: 02-06-2024 ambulatory 02/06/2024 2:00 PM EDT Treatment [facility] [address] [facility] [address] [place] [address] Thierno Chamberlain, NEON SIGN MECHANIC Arrived [facility] Comment on above: Arrived Start: 01-22-2024 X-ray of left knee XR knee LT 3V - NOT FOR ER USE [facility] Start: 01-22-2024 XR Knee - left 3 Views [facility] Start: 01-11-2024 End: 01-11-2024 [facility] Start: 01-06-2024 Influenza vaccination Influenza Vacc ine (#1) [facility] Start: 2024 Duplex scan of lower limb veins US venous duplex LE LT [facility] Start: 2024 US Lower extremity v ein - left [facility] Start: 12-24-2023 X-ray of left knee XR knee LT 3V - NOT FOR ER USE [facility] Start: 12-24-2023 XR Knee - left 3 Views [facility] Patient Education Know your Meds [facility] Work Phone: US Lower extremity v ein - left [facility] Payers Date Payer Category Payer Self-pay 2023 Private Health Insurance [facility] [id number] 2023 Unknown [employer] [id number] 2023-Present [phone] [address] [address] [place] [address] [id number] [id number] 2023 Private Health Insurance [id number] 1996 Unknown [id number] 2.16.840.1.354965.3.579. 2.593 1996 Unknown [id number] 2.16.840.1.060321.3.579. 2.593 1996 Unknown [id number] 2.16.840.1.217673.3.579. 2.1259 1996 Unknown [id number] 2.16.840.1.864082.3.579. 2.1259 1996 Unknown [id number] 2.16.840.1.495571.3.579. 2.1259 1996 Unknown [id number] 2.16.840.1.569543.3.579. 2.1259 1996 Unknown [id number] 2.16.840.1.178282.3.579. 2.1259 1996 Unknown [id number] 2.16.840.1.819660.3.579. 2.1259 1996 Unknown [id number] 2.16.840.1.454897.3.579. 2.1259 1996 Unknown [id number] 2.16.840.1.225405.3.579. 2.1259 1996 Unknown [id number] 2.16.840.1.004992.3.579. 2.1259 1996 Unknown [id number] 2.16.840.1.627714.3.579. 2.1259 1996 Unknown [id number] 2.16.840.1.873649.3.579. 2.1258 1996 Unknown [id number] 2.16.840.1.268582.3.579. 2.1258 1996 Unknown [id number] 2.16.840.1.472702.3.579. 2.1258 1996 Unknown [id number] 2.16.840.1.540938.3.579. 2.1258 1996 Unknown [id number] 2.16840.1.855081.3.579. 2.1258 1996 Unknown [id number] 2.16840.1.644568.3.579. 2.1258 1996 Unknown [id number] 2.840.1.171403.3.579. 2.1258 1996 Unknown [id number] 2.840.1.230778.3.579. 2.1258 1996 Unknown [id number] 2.16840.1.421276.3.579. 2.9 1959 Unknown [id number] 1959 Unknown [id number] Private Health Insurance [facility] [id number] Unknown [id number] 2.840.1.052451.3.579. 2.531 Unknown [id number] 2.16840.1.753102.3.579. 2.531 Unknown [id number] 2.16840.1.757979.3.579. 2.531 Unknown [id number] 2.16840.1.769810.3.579. 2.531 Social History Date Type Detail Facility Start: 08-03-2021 Tobacco smoking status Light tobacco smoker (finding) [facility] Sex Assigned At Male [facility] Start: 1995 Sex Assigned At Male F [facility] Start: 01-11-2024 Tobacco smoking status NHIS Smoker (finding) [facility] Tobacco smoking status [facility] Tobacco smoking consumption unknown [facility] Start: 1996 Sex assigned at Not on file [facility] Medical Equipment Procedure Code Equipment Code Equipment Origin al Text Equipment Identifier Dates Arthroscopy, knee Orthopaedic charlie ne washer, sterile [id number] FDA Start: 01-11-2024 Arthroscopy, knee Tendon/ligamen t bone anchor, non-bioabsorbable ()[id number] FDA Start: 01-11-2024 Arthroscopy, knee Tendon/ligamen t bone anchor, non-bioabsorbable ()[id number] FDA Start: 01-11-2024 Arthroscopy, knee Polyolefin/flu oropoly phani suture, multifilament [id number] FDA Start: 01-11-2024 Arthroscopy, knee Polyolefin/flu oropoly phani suture, multifilament [id number] FDA Start: 01-11-2024 Arthroscopy, knee Orthopaedic fi xation suture button ()[id number] FDA Start: 01-11-2024 Arthroscopy, knee Orthopaedic fi xation suture button ()[id number] FDA Start: 01-11-2024 Goals Date Patient Goal Desired Activity /State Clinical Notes 08-03-2021 to 01-12-2023 Note Date & Type Note Facility 01-12-2023 Evaluation note Encounter Date Diagnosis Assessment Notes Jan, Closed fracture of distal end of left fibula, unspecified fracture morphology, initial encounter (ICD-10 - S82.832A) Piol returns with a healed left distal fibula [...] working without restrictions. Call with questions/con cerns. [facility] Other 06-02-2023 Evaluation note* Encounter Date Diagnosis [...] states no further questions at this time. [facility] Other 03-29-2023 Evaluation note* Encounter Date Diagnosis [...] Continue activity as tolerated. Call with questions/concern [employer]. [facility] Other 02-15-2023 Evaluation note* Encounter Date Diagnosis [...] move forward with treatment at this time. [facility] DOI 04/28/2022.Pilo returns 8 weeks status [...] voices understanding and states no further questions. [facility] Other 01-11-2023 Evaluation note* Encounter Date Diagnosis [...] states no further questions at this time. [facility] Other 12-28-2022 Evaluation note* Encounter Date Diagnosis [...] in office today. Prior medical notes from [place] ED and history have been reviewed. At [...] understanding and is agreeable to treatment plan. [facility] Other 03-30-2022 NoteChief Complaint Referral *ED HPI Staff Evaluation requested by Dr De Jesus. Pt is a new pt, never before seen in our office. Here today due to ED. Has tried Tadalafil 20mg in the past. Has tried Viagra. Just prescribed Vardenafil 20mg, has not tried yet. Medications help achieve erection but nit maintain erection. Has been ongoing for a couple of months. 07/05/21- Testosterone level 630 ([phone]) Has had this problem in the past, [...] PCP prescribed. 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 pt will f/u PRN. Total time spent reviewing previous notes/results/external documents, preparing the chart, conducting the encounter with the patient and family, ordering tests/medications, and documenting the encounter was 35 mins. Ordered: E&M of New Patient Low 30-44 Min 62244 Urnls Dip Stick Auto w/o Microscopy POC 20407 Follow-up With When Contact Information MORENO MARTINEZ Only if needed [address] [place] [address] Business (1) Additional Instructions: Patient Education Erectile Dysfunction [...] Protein Urine Dipstick: Negative (08/03/21 09:55:00) Specific [place] Urine Dipstick: 1.020 (08/03/21 09:55:00) Urine Appearance Urine Dipstick: Clear (08/03/21 09:55:00) Urine Color Urine Dipstick: Yellow (08/03/21 09:55:00) Urobilinogen Urine Dipstick: 4 EU/dl (08/03/21 09:55:00) pH Urine Dipstick: 6.5 (08/03/21 09:55:00)[facility]Result Comment: Electronically Signed By: MORENO MARTINEZ PA-C\.rosemary\Date and Time Signed: 08/03/2210:12 [id number] Hospital Discharge instructions Patient Education 08/03/2021 11:10:10 [...] Follow these instructions at home: Medicines Take kgwn-yin-oxmjhvq and prescription medicines only as told by [...] 04/20/2001 Document Revised: 04/05/2018 Document Reviewed: 05/09/2017 [employer] Patient Education 2020 [employer]. Follow Up Care 07/14/2021 14:13:52 With:MORENO MARTINEZ Address: [address] [place] [address] Business (1) When: only if needed [facility] evalhsjxig + Plan note No data available for this section [facility] evaluation noteNo assessment information available [facility] Work Phone: Evaluation note* Diagnosis Onset Date Resolution Status Tears of meniscus and ACL of left knee acute [facility] Work Phone: evaluation note* Diagnosis Onset Date Resolution Status Body mass index [BMI] 50.0-59.9, adult acute Morbid obesity with BMI of 50.0-59.9, adult acute Tears of meniscus and ACL of left knee acute Body mass index [BMI] 50.0-59.9, adult acute Morbid obesity with BMI of 50.0-59.9, adult acute Tears of meniscus and ACL of left knee acute [facility] Work Phone: Evaluation note* Diagnosis Onset Date Resolution Status Body mass index [BMI] 50.0-59.9, adult acute Morbid obesity with BMI of 50.0-59.9, adult acute Tears of meniscus and ACL of left knee acute Body mass index [BMI] 50.0-59.9, adult acute Morbid obesity with BMI of 50.0-59.9, adult acute Tears of meniscus and ACL of left knee acute Encounter for removal of sutures acute Morbid obesity with BMI of 50.0-59.9, adult acute Status post arthroscopy of left knee acute Tears of meniscus and ACL of left knee acute [facility] Work Phone: evaluation note* Diagnosis Acute pain of left knee- Primary Knee stiffness, left S/P arthroscopic reconstruction of ACL using quadriceps tendon autograft documented in this encounter [facility]* Diagnosis Acute pain of left knee- Primary Knee stiffness, left S/P arthroscopic reconstruction of ACL using quadriceps tendon autograft documented in this encounter [facility]* Diagnosis Acute pain of left knee- Primary Knee stiffness, left S/P arthroscopic reconstruction of ACL using quadriceps tendon autograft Weakness of left leg Muscle weakness (generalized) documented in this encounter [facility]* Diagnosis Acute pain of left knee- Primary Knee stiffness, left S/P arthroscopic reconstruction of ACL using quadriceps tendon autograft Weakness of left leg Muscle weakness (generalized) Tear of anterior cruciate ligament, complete, left, subsequent encounter documented in this encounter [facility]* Diagnosis Onset Date Resolution Status Body mass index [BMI] 50.0-59.9, adult acute Morbid obesity with BMI of 50.0-59.9, adult acute Tears of meniscus and ACL of left knee acute Encounter for removal of sutures acute Morbid obesity with BMI of 50.0-59.9, adult acute Status post arthroscopy of left knee acute Tears of meniscus and ACL of left knee acute Morbid obesity with BMI of 50.0-59.9, adult acute Status post arthroscopy of left knee acute Tears of meniscus and ACL of left knee acute [facility] Work Phone: History general Narrative - Reported* Type Description Date Medical History left distal fibula fracture Surgical History gastric bypass Hospitalization History see above [employer] [facility] [employer] Other Hospital Discharge instructions Additional Instructions POST-OPERATIVE INSTRUCTIONS FOR ACL RECONSTRUCTION Benson Hooker DO Orthopedic Surgeon [facility] GENERAL INSTRUCTIONS: Use ice packs to the area of the incision as much as you can tolerate (30 minutes on/30 minutes off) over the first 48-72 hours post-operatively. DO NOT apply ice directly to the skin. Always place a towel between the ice pack and skin. Low grade temperatures are common after surgery. Please notify the office if your temperature exceeds 101.5 degrees Fahrenheit. DO NOT make critical decisions or sign legal papers for the first 24 hours after surgery or while taking pain medication. MEDICATIONS AND DIET: You may resume all pre-operative medications unless otherwise specified. Only take pain medication as prescribed, as needed. We recommend taking a baby aspirin (81mg) twice daily for about 2 weeks to help with the development and progression of blood clots You should take pain medication with food. It is not uncommon to have nausea or an upset stomach after surgery. Medication refills require a 48 hour notice; no exceptions will be made. NO REFILLS will be authorized over the weekend. If you have a reaction to your medications, stop taking them and call the office immediately. If you develop a significant rash, or have trouble breathing, call 911 or go immediately to the nearest emergency room. ACTIVITY: Your knee is wrapped in a soft MASOUD bandage You do not have a brace on your operative leg. You can use the Masoud bandage and reapply once initially removed to help with overall swelling of the leg. Weight bearing as tolerated on your operative extremity. You must use crutches while ambulating, favoring the operative side. You can discontinue the crutches only when you can perform a straight leg raise unassisted. DRESSING/BANDAGES: Your surgical bandage may show some drainage over the first 24-48 hours following surgery. Keep steri-strips intact if they are present If your bandage becomes saturated, please notify the office. You may shower after the first 48 hours following surgery. DO NOT soak the incision. DO NOT submerge the incision in a bath, hot tub, swimming pool, or any other body of water for the first 4 weeks following surgery. FOLLOW UP: Your first post-operative appointment should already be scheduled for you. If you do not already have a post-operative appointment, our office will contact you to schedule one. You should be seen in the office two weeks following your surgery unless otherwise specified. If you notice any increasing swelling, wound redness, or drainage, please contact our office immediately. [facility] Work Phone: Reason for visit Narrative* Rehabilitation - Outpatient (Routine) - Authorized Specialty Diagnoses / Procedures Referred By Remington t Referred To Contact Physical Therapy Diagnoses Unspecified tear of unspecified meniscus, current injury, left knee, initial encounter Sprain of anterior cruciate ligament of left knee, initial encounter Procedures AR PHYSICAL THERAPY EVALUATION LOW COMPLEX 20 MINS Benson Hooker MD [address] [place] [address] Phone: tel: fax: Michael Guzman, PT [address] [place] [address] Phone: tel: fax: Referral ID Status Reason Start Date Expiration Date V isits Requested Visits Authorized [id number] Authorized 01/15/2024 07/13/2024 40 40 [facility] Summary Purpose Family History Relationship Condition Age at Onset Recorded Date/T gabe father Hypertension Unknown Advance Directives Advance Directive Response Recorded Date/ Time Advance Directives No May 25, 2022 7:40am Advance Directive Response Recorded Date/ Time Advance Directives No May 25, 2022 8:40am Chief Complaint and Reason for Visit Chief Complaint S82.832A Chief Complaint S82.832A s82.832a Chief Complaint 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 2ND OPINION LT ACL TEAR BRINGING MRI Reason for Visit Tears of meniscus an d ACL of left knee Chief Complaint 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 2ND OPINION LT ACL TEAR BRINGING MRI S83.207A - Unspecified tear of unspecified meniscu 5 WEEK RECHECK Reason for Visit Body mass index [BMI ] 50.0-59.9, adult Morbid obesity with BMI of 50.0-59.9, adult Tears of meniscus and ACL of left knee Body mass index [BMI] 50.0-59.9, adult Morbid obesity with BMI of 50.0-59.9, adult Tears of meniscus and ACL of left knee Chief Complaint 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 2ND OPINION LT ACL TEAR BRINGING MRI S83.207A - Unspecified tear of unspecified meniscu 5 WEEK RECHECK M79.605 Reason for Visit Body mass index [BMI ] 50.0-59.9, adult Morbid obesity with BMI of 50.0-59.9, adult Tears of meniscus and ACL of left knee Body mass index [BMI] 50.0-59.9, adult Morbid obesity with BMI of 50.0-59.9, adult Tears of meniscus and ACL of left knee Chief Complaint 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 LT ACL TEAR BRINGING MRI S83.207A - Unspecified tear of unspecified meniscu 5 WEEK RECHECK M79.605 Knee Pain Knee Pain Reason for Visit Body mass index [BMI ] 50.0-59.9, adult Morbid obesity with BMI of 50.0-59.9, adult Tears of meniscus and ACL of left knee Body mass index [BMI] 50.0-59.9, adult Morbid obesity with BMI of 50.0-59.9, adult Tears of meniscus and ACL of left knee Chief Complaint 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 2ND OPINION LT ACL TEAR BRINGING MRI S83.207A - Unspecified tear of unspecified meniscu 5 WEEK RECHECK M79.605 Knee Pain Knee Pain 10-14 days post op Z98.890 - Other specified postprocedural states Reason for Visit Body mass index [BMI ] 50.0-59.9, adult Morbid obesity with BMI of 50.0-59.9, adult Tears of meniscus and ACL of left knee Body mass index [BMI] 50.0-59.9, adult Morbid obesity with BMI of 50.0-59.9, adult Tears of meniscus and ACL of left knee Encounter for removal of sutures Morbid obesity with BMI of 50.0-59.9, adult Status post arthroscopy of left knee Tears of meniscus and ACL of left knee Chief Complaint S83.207A - Unspecifi ed tear of unspecified meniscu 5 WEEK RECHECK M79.605 Knee Pain Knee Pain 10-14 days post op Z98.890 - Other specified postprocedural states 4 WK RECHECK Reason for Visit Body mass index [BMI ] 50.0-59.9, adult Morbid obesity with BMI of 50.0-59.9, adult Tears of meniscus and ACL of left knee Encounter for removal of sutures Morbid obesity with BMI of 50.0-59.9, adult Status post arthroscopy of left knee Tears of meniscus and ACL of left knee Morbid obesity with BMI of 50.0-59.9, adult Status post arthroscopy of left knee Tears of meniscus and ACL of left knee Additional Source Comments (unrecognized sect ion and content) No Status Records FoundNo Status Records FoundNo Status Records FoundNo Status Records Found INFORMATION SOURCE (unrecogn ized section and content) DATE CREATED AUTHOR [facility]05[facility]2021 [facility] DATE CREATED AUTHOR AUTHOR'S ORGANIZ ATION 05/02/2022 [facility] DATE CREATED AUTHOR AUTHOR'S ORGANIZ ATION 02/06/2024 [facility] DATE CREATED AUTHOR AUTHOR'S ORGANIZ ATION 02/19/2024 [facility] Care Teams (unrecognized sec tion and content) Team Status: Active Member Role Status Dates Radhika De Jesus , MD Primary Care Provider Active Team Status: Inactive Member Role Status Radha De Jesus MD Primary Care Provider Active Bryce Zhang DO Attending Provider Active Team Status: Inactive Member Role Status Radha De Jesus MD Primary Care Provider Active Start: November 19, 2023 End: November 19, 2023 Bryce Zhang DO Active Start: November 19, 2023 End: November 19, 2023 Benson Hooker DO Attending Provider Active St art: November 19, 2023 End: November 19, 2023 Team Status: Active Member Role Status Radha De Jesus MD Primary Care Provider Active Start: December 24, 2023 Benson Hooker DO Attending Provider Active St art: December 24, 2023 Team Status: Inactive Member Role Status Radha De Jesus MD Primary Care Provider Active Start: December 24, 2023 End: December 24, 2023 Benson Hooker DO Attending Provider Active St art: December 24, 2023 End: December 24, 2023 Team Status: Inactive Member Role Status Radha De Jesus MD Primary Care Provider Active Start: 2024 End: 2024 Benson Hooker DO Attending Provider Active St art: 2024 End: 2024 Team Status: Inactive Member Role Status Radha De Jesus MD Primary Care Provider Active Start: January 11, 2024 End: January 11, 2024 Benson Hooker DO Attending Provider Active St art: January 11, 2024 End: January 11, 2024 Team Status: Active Member Role Status Radha De Jesus MD Primary Care Provider Active Start: January 11, 2024 Benson Hooker DO Attending Provider, Other Provider Active Start: January 11, 2024 Team Status: Inactive Member Role Status Radha De Jesus MD Primary Care Provider Active Start: January 22, 2024 End: January 22, 2024 Benson Hooker DO Attending Provider Active St art: January 22, 2024 End: January 22, 2024 Team Status: Active Member Role Status Radha De Jesus MD Primary Care Provider Active Start: January 22, 2024 Benson Hooker DO Attending Provider Active St art: January 22, 2024 Team Status: Inactive Member Role Status Dates Radhika De Jesus MD Primary Care Provider Active Start: February 19, 2024 End: February 19, 2024 Benson Hooker DO Attending Provider Active St art: February 19, 2024 End: February 19, 2024 Goals (unrecognized section and content) Goals may be documented in a n alternate section REASON FOR VISIT (unrecogniz ed section and content) Specialty Diagnoses / Procedures Referred By Remington sims Referred To Contact Physical Therapy Diagnoses Unspecified tear of unspecified meniscus, current injury, left knee, initial encounter Sprain of anterior cruciate ligament of left knee, initial encounter Procedures AR PHYSICAL THERAPY EVALUATION LOW COMPLEX 20 MINS Benson Hooker MD [address] [place] [address] Michael Guzman, PT [address] [facility] [address] [place] [address] Referral ID Status Reason Start Date Expiration Date V isits Requested Visits Authorized [id number] Authorized 01/15/2024 07/13/2024 40 40 FOR RECORDS PERTAINING TO PATIENTS WHO ARE [...] BE BASED ON THE PRIMARY CLINICAL RECORDS. [facility]. provides no warranty or guarantee of the accuracy or completeness of information in this document.
--- NOTE | 2024-02-22 00:52 | PC.NURSE ---
PT TOOK THC GUMMIES AT 6:30 PM AND STARTED TO FEEL DIZZY, SHAKY AND OFF BALANCE AT 10 PM.
--- NOTE | 2024-02-22 00:54 | XR_ITS ---
[facility] [id number] Patient Name: MEREDITH NAPIER MRN: [id number] date: 1995 Sex: M Assigned Patient Location: ER Current Patient Location: ED.MAIN Accession/Order Number: [id number] Exam Date: 02/22/2024 01:20 Report Date: 02/22/2024 05:07 At the request of: KEEGAN HANLEY Procedure: XR chest 1V HISTORY: Dizziness and nausea. XR chest 1V: 02/22/2024 1:20 AM EDT COMPARISON: None. FINDINGS: The cardiomediastinal silhouette appears within normal limits in size. No focal consolidation, pleural effusion, pneumothorax, or evidence of congestive heart failure is seen. Median sternotomy wires are seen. XR/XR chest 1V IMPRESSION: No radiographic evidence of active cardiopulmonary disease is seen. Electronically authenticated by: RADHIKA JIMENEZ Date: 02/22/2024 05:07
--- NOTE | 2024-02-22 00:54 | ECG_ITS ---
[facility] Test Date: 2024-02-22 Pat Name: MEREDITH NAPIER Department: Room: - Gender: Male [employer] Tight: : 1995 Requested By: RADHIKA BARRAGAN Order Number: [id number] Reading MD: JOANNE ALBA Measurements Intervals [place] Rate: 95 P: 17 DE: 174 QRS: 14 QRSD: 104 T: 62 QT: 372 QTc: 425 Interpretive Statements 1100 Sinus rhythm 2440 Incomplete right bundle branch block 4068 Nonspecific Twave abnormality 9130 borderline ECG No previous ECG available for comparison Electronically Signed On 02-24-2024 12:33:21 EDT by JOANNE ALBA
[2024-02-22] MEDS: ONDANSETRON PF 4 MG/2 ML VIAL IV (01:08)
[2024-02-22 01:19] LABS: Anion Gap 17.7; BUN Creatinine Ratio 16.7; Calcium 9.2 mg/dL (8.5-10.1); Carbon Dioxide 21.9 mmol/L (21.0-32.0); Chloride 106 mmol/L (98-107); Estimated GFR (African America >60 (>=60 mL/min/1.73m^2); Estimated GFR (Non-African Ame >60 (>=60 mL/min/1.73m^2); Glucose 139 mg/dL (74-106); Potassium 3.6 mmol/L (3.5-5.1); Sodium 142 mmol/L (136-145); Troponin I High Sensitivity <4.0 pg/mL (4.0-76.1)
--- NOTE | 2024-02-22 01:22 | ED_ITS ---
HPI HPI - General Adult General Chief complaint: Dizziness Stated complaint: chest pain cbd Time Seen by Provider: 02/22/24 00:36 Source: patient Mode of arrival: Wheelchair Limitations: no limitations History of Present Illness HPI narrative: 21-year-old male to the emergency department with chief complaint of feeling unwell after taking some THC Gummies. Patient reports that he was having some discomfort in his knee. This has been ongoing for some time. He talked to some coworkers who told him that they tried to use THC Gummies and they seem to help with her pain. Patient reports he bought a package of delta 8 THC Gummies and took one half of 1 gummy. This was approximately 175mg delta 8 THC. Patient reports that he went to bed. He reports that when he woke up he had chest pain, felt dizzy, felt nauseous, felt jittery. He reports it is similar negative reaction to a THC product in the past Related Data Home Medications ?Medication ?Instructions ?Recorded ?Confirmed No Known Home Medications 02/22/24 02/22/24 Allergies Allergy/AdvReac Type Severity Reaction Status Date / Time No Known Drug Allergies Allergy Verified 02/22/24 00:35 Opioid HPI Opioid Management Most Recent Opioid Data: No Data to Display Review of Systems ROS Status of ROS 10 or more systems reviewed and unremark able except as noted in history and below Exam Narrative Exam Narrative: VITALS: I have reviewed the triage vital signs. GENERAL: Well developed, well appearing adult in no acute distress. NEURO: Alert and oriented. Moves all extremities. Face is symmetric and expressive. EYES: PERRL. No scleral icterus or conjunctival injection. No discharge. HENT: Normocephalic, atraumatic. Hearing is grossly intact. Nares grossly patent and without discharge. Mucous membranes moist. NECK: No JVD. Patient moves neck without restriction. CARDIO: Rhythm regular. Normal rate. No murmur, rub, or gallop. Pulses equal bilaterally in the upper and lower extremity. No lower extremity edema. PULM: Lungs clear to auscultation in all lagunas. No wheezes, rales, or rhonchi. No conversational dyspnea. No splinting, stridor, or accessory muscle use. GI/: Abdomen is soft and non-tender. Normoactive bowel sounds. EXTREMITIES: Symmetric muscle bulk. No joint swelling. No clubbing, cyanosis, or deformity. SKIN: Warm and dry. Normal turgor. No rash or lesions appreciated. PSYCH: Anxious Constitutional Vital Signs, click to edit/add: Last Vital Signs Temp 97.5 F L 02/22/24 00:35 Pulse 85 02/22/24 02:50 Resp 22 H 02/22/24 02:50 BP 115/57 02/22/24 02:31 Pulse Ox 93 L 02/22/24 02:20 Course Vital Signs Vital signs: Vital Signs Temperature 97.5 F L 02/22/24 00:35 Pulse Rate 107 H 02/22/24 00:35 Respiratory Rate 16 02/22/24 00:35 Blood Pressure 150/100 H 02/22/24 00:35 Pulse Oximetry 96 02/22/24 00:35 Temperature 97.5 F L 02/22/24 00:35 Pulse Rate 85 02/22/24 02:50 Respiratory Rate 22 H 02/22/24 02:50 Blood Pressure 115/57 02/22/24 02:31 Pulse Oximetry 93 L 02/22/24 02:20 Medical Decision Making MDM Narrative Medical decision making narrative: Well-appearing 29-year-old male to the emergency department with chief complaint of nausea, chest pain, feeling jittery after taking delta 8 THC. Vital stable, the patient is afebrile. Cardiac workup is initiated. Zofran for his nausea. Will observe the patient. Patient agrees with this plan. CBC and chemistry are unremarkable. His troponin is negative. Chest x-ray without acute findings. EKG without evidence of ischemia. Patient observed in the department. He feels much improved. His mother will take him home. Patient agrees with this plan. Return precautions were discussed. All questions were answered. The patient was discharged home. Medical Records Medical records reviewed: Yes I reviewed the patient's medical records Lab Data Lab results reviewed: Yes I reviewed the patient's lab results Labs: Lab Results 02/22/24 02/22/24 Range/Units 00:40 01:29 WBC 9.7 (4.0-11.0) 10^3/uL RBC 4.35 L (4.70-6.10) 10^6/uL Hgb 13.2 L (14.0-18.0) g/dL Hct 39.9 L (42.0-54.0) % MCV 91.7 (80.0-94.0) fL MCH 30.3 (25.9-34.0) pg MCHC 33.1 (29.9-35.2) g/dL RDW 13.2 (11.0-15.0) % Plt Count 134 L (150-450) 10^3/uL MPV 14.4 H (9.5-13.5) fL Neut % (Auto) 74.5 (43.0-75.0) % Lymph % (Auto) 13.9 L (20.5-60.0) % [place] % (Auto) 8.4 (1.7-12.0) % Eos % (Auto) 2.1 (0.9-7.0) % Baso % (Auto) 0.5 (0.2-2.0) % Neut # (Auto) 7.2 H (1.4-6.5) 10^3/uL Lymph # (Auto) 1.4 (1.2-3.8) 10^3/uL [place] # (Auto) 0.8 (0.3-0.8) 10^3/uL Eos # (Auto) 0.2 (0.0-0.7) 10^3/uL Baso # (Auto) 0.1 (0.0-0.1) 10^3/uL Abs Immat Gran (auto) 0.06 H (0.00-0.03) 10^3/uL Imm/Tot Granulo (auto) 0.6 H (0.0-0.5) % Sodium 142 (136-145) mmol/L Potassium 3.6 (3.5-5.1) mmol/L Chloride 106 (98-107) mmol/L Carbon Dioxide 21.9 (21.0-32.0) mmol/L Anion Gap 17.7 BUN 17.0 (7.0-18.0) mg/dL Creatinine 1.02 (0.70-1.30) mg/dL Est GFR ( Amer) >60 (>=60 mL/min/1.73m^2) Est GFR (Non-Af Amer) >60 (>=60 mL/min/1.73m^2) BUN/Creatinine Ratio 16.7 Glucose 139 H (74-106) mg/dL Calcium 9.2 (8.5-10.1) mg/dL Troponin I High Sens <4.0 L (4.0-76.1) pg/mL Imaging Data Chest x-ray: Attestation: I personally reviewed and interpreted this imaging study as follows: (No acute cardiopulmonary findings.) ECG Data Attestation: I personally reviewed and interpreted this ECG as follows: (Normal sinus rhythm at a rate of 95. No STEMI. Normal QTc at 425) Discharge Plan Discharge Chief Complaint: Dizziness Clinical Impression: Adverse drug reaction Patient Disposition: Home, Self-Care Time of Disposition Decision: 03:13 Condition: Good Mode of Transportation: Private Vehicle Prescriptions / Home Meds: No Action No Known Home Medications Print Language: Guyanese Instructions: Adult Overdose (ED) Additional Instructions: Call the office of your primary care doctor to arrange for follow-up within the above-stated timeframe. Your ED visit was focused on your acute issue and does not replace primary care. You should review your labs, imaging, and diagnoses from this ED visit with your primary care physician. There may be non-emergent/ incidental findings that need further evaluation. You should review your vital signs including blood pressure with your PCP. If you were prescribed medications you should discuss possible side-effects and drug interactions with your pharmacist. Call 911 or go to the nearest Emergency Department if you develop any new or worsening symptoms. Referrals: Brando De Jesus MD [Primary Care Provider] - 1 week
[2024-02-22 02:04] LABS: Basophils Absolute Auto 0.1 10^3/uL (0.0-0.1); Basophils Percent Auto 0.5 % (0.2-2.0); Eosinophils Absolute Auto 0.2 10^3/uL (0.0-0.7); Eosinophils Percent Auto 2.1 % (0.9-7.0); Hematocrit 39.9 % (42.0-54.0); Hemoglobin 13.2 g/dL (14.0-18.0); Immature Granulocytes Abs Auto 0.06 10^3/uL (0.00-0.03); Immature Granulocytes Pct Auto 0.6 % (0.0-0.5); Lymphocytes Absolute Auto 1.4 10^3/uL (1.2-3.8); Lymphocytes Percent Auto 13.9 % (20.5-60.0); Mean Corpuscular HGB Conc 33.1 g/dL (29.9-35.2); Mean Corpuscular Hemoglobin 30.3 pg (25.9-34.0); Mean Corpuscular Volume 91.7 fL (80.0-94.0); Mean Platelet Volume 14.4 fL (9.5-13.5); Monocytes Absolute Auto 0.8 10^3/uL (0.3-0.8); Monocytes Percent Auto 8.4 % (1.7-12.0); Neutrophils Absolute Auto 7.2 10^3/uL (1.4-6.5); Neutrophils Percent Auto 74.5 % (43.0-75.0); Red Blood Count 4.35 10^6/uL (4.70-6.10); Red Cell Distribution Width 13.2 % (11.0-15.0); White Blood Count 9.7 10^3/uL (4.0-11.0)
[2024-02-22 02:37] LABS: Platelet Count 134 10^3/uL (150-450)
== END 2024-02-22 03:24 | disposition home or self-care (01) ==
PROVIDERS: Emergency Provider Student in an Organized Health Care Education/Training Program; PCP Family Medicine
DX: R07.9 Chest pain, unspecified (principal); R11.0 Nausea; T40.715A Adverse effect of cannabis, initial encounter
CPT/HCPCS: 36415; 71045; 80048; 84484; 85025; 93005; 96374; 99285; J2405

== ENCOUNTER 2024-09-03 07:10 | Outpatient (OUT) | payer OTHER, SELFPAY ==
[2024-09-03 07:38] LABS: Hematocrit 42.7 % (42.0-54.0); Hemoglobin 14.8 g/dL (14.0-18.0); Mean Corpuscular HGB Conc 34.7 g/dL (29.9-35.2); Mean Corpuscular Hemoglobin 31.4 pg (25.9-34.0); Mean Corpuscular Volume 90.5 fL (80.0-94.0); Mean Platelet Volume 12.7 fL (9.5-13.5); Platelet Count 161 10^3/uL (150-450); Red Blood Count 4.72 10^6/uL (4.70-6.10); White Blood Count 9.4 10^3/uL (4.0-11.0)
[2024-09-03 07:55] LABS: Anisocytosis 1+; Eosinophils Absolute Manual 0.65 10^3/uL (0.00-0.70); Lymphocytes Absolute Manual 1.41 10^3/uL (1.20-3.80); Monocytes Absolute Manual 0.65 10^3/uL (0.30-0.80); Segmented Neut Absolute Manual 6.67 10^3/uL (1.4-6.5)
[2024-09-03 08:03] LABS: Estimated Average Glucose 94 mg/dL; Glycohemoglobin A1C 4.9 % (4.5-6.2)
[2024-09-03 08:15] LABS: Alanine Aminotransferase 42 U/L (16-63); Albumin Globulin Ratio 1.1; Albumin Level 4.2 g/dL (3.4-5.0); Alkaline Phosphatase 83 U/L (46-116); Anion Gap 12.4; Aspartate Amino Transferase 30 U/L (15-37); BUN Creatinine Ratio 16.9; Bilirubin Total 0.8 mg/dL (0.2-1.0); Calcium 9.5 mg/dL (8.5-10.1); Carbon Dioxide 29.5 mmol/L (21.0-32.0); Chloride 100 mmol/L (98-107); Chol HDL Ratio 2.6; Cholesterol 133 mg/dL (<=200); Estimated GFR (African America >60 (>=60 mL/min/1.73m^2); Estimated GFR (Non-African Ame >60 (>=60 mL/min/1.73m^2); Globulin 3.7 g/dL; Glucose 88 mg/dL (74-106); HDL Cholesterol 51 mg/dL (40-60); LDL Cholesterol Calculated 68.4 mg/dL; Potassium 3.9 mmol/L (3.5-5.1); Sodium 138 mmol/L (136-145); Thyroid Stimulating Hormone 1.607 uIU/mL (0.358-3.740); Total Protein 7.9 g/dL (6.4-8.2); Triglycerides 68 mg/dL (<=150); VLDL CHOLESTEROL 13.6 mg/dL
[2024-09-04 06:08] LABS: HBsAg Screen Negative (Negative); HCV Ab Non Reactive (Non Reactive); HSV 1 IgG, Type Spec Reactive (Non Reactive); HSV 2 IgG, Type Spec Non Reactive (Non Reactive); Hep A Ab, IgM Negative (Negative); Hep B Core Ab, IgM Negative (Negative)
[2024-09-04 07:12] LABS: HIV Ab/p24 Ag Screen Non Reactive (Non Reactive)
[2024-09-04 08:08] LABS: Insulin 13.3 uIU/mL (2.6-24.9); Testosterone 335 ng/dL (264-916)
[2024-09-04 13:09] LABS: Rapid Plasma Reagin, Quant Non Reactive titer (NonRea<1:1)
[2024-09-04 23:11] LABS: Neisseria gonorrhoeae, NAA Negative (Negative)
== END 2024-09-03 07:11 | disposition home or self-care (01) ==
LOC: LAB 07:11
PROVIDERS: PCP Family Medicine; Visit Provider Family Medicine
DX: Z00.00 Encounter for general adult medical examination without abnormal findings (principal)
CPT/HCPCS: 36415; 80053; 80061; 80074; 83036; 83525; 84403; 84436; 84443; 84481; 85007; 85025; 85027; 86592; 86695; 86696; 87389; 87491; 87591